=== PATIENT | male | born 1970 | race African-American/Black ===

== ENCOUNTER 2017-05-19 08:49 | Inpatient (IN) | payer SELFPAY ==
[~2017-05-19] VITALS: Ht 167.6 cm; Wt 68.5 kg
[~2017-05-19 08:49] MED LIST: UNKNOWN MEDICATION
[2017-05-19 09:53] LABS: BASOPHILS % 0.4 % (0.0-2.0); EOSINOPHILS % 0.6 % (0.0-5.0); HEMOGLOBIN. 15.2 g/dL (14.0-18.0); LYMPHOCYTES % 14.6 % (20.0-50.0); MEAN CORPUSCULAR HEMOGLOBIN 31.3 pg (28.0-32.0); MEAN CORPUSCULAR VOLUME 90.5 fL (80.0-94.0); MEAN PLATELET VOLUME 8.4 fl (7.4-10.4); MONOCYTES % 3.6 % (2.0-8.0); NEUTROPHILS % 80.8 % (40.0-76.0); PLATELET 181 x1000/uL (130-400); RED BLOOD CELL COUNT 4.86 mill/uL (4.7-6.1); RED CELL DISTRIBUTION WIDTH 13.6 % (11.6-14.6)
[2017-05-19 10:04] LABS: CHLORIDE 99 mEq/L (98-107); ETHANOL BLOOD < 10 mg/dL
[2017-05-19 10:16] LABS: CLARITY URINE CLEAR (CLEAR); COLOR URINE YELLOW (YELLOW); KETONES URINE NEGATIVE (NEGATIVE); LEUKOCYTE ESTERASE URINE NEGATIVE (NEGATIVE); NITRITE URINE NEGATIVE (NEGATIVE); OCCULT BLOOD URINE NEGATIVE (NEGATIVE); PROTEIN URINE NEGATIVE (NEGATIVE); SPECIFIC GRAVITY URINE 1.014 (1.005-1.030); UROBILINOGEN URINE 0.2 E.U./dL (0.2-1.0)
[2017-05-19] MEDS ORDERED: IOHEXOL-350 100 ML BOTTLE ONE ×2 (10:27→10:56)
[2017-05-19 10:37] LABS: *AMPHETAMINES SCREEN URINE NEGATIVE (NEGATIVE); *BARBITURATES SCREEN URINE NEGATIVE (NEGATIVE); *COCAINE SCREEN URINE NEGATIVE (NEGATIVE); CANNABINOID URINE SCREEN NEGATIVE (NEGATIVE); METHADONE URINE SCREEN NEGATIVE (NEGATIVE); OPIATES URINE SCREEN NEGATIVE (NEGATIVE); PHENCYCLIDINE URINE SCREEN NEGATIVE (NEGATIVE)
[2017-05-19 11:06] LABS: *BENZODIAZEPINES SCREEN URINE NEGATIVE (NEGATIVE)
[2017-05-19] MEDS ORDERED: CLONIDINE 0.1MG TABLET PO PRN (12:30)
[2017-05-19] MEDS ORDERED: DOCUSATE SODIUM 100MG CAPSULE PO PRN (12:30)
[2017-05-19] MEDS ORDERED: ONDANSETRON HCL 4MG/2ML VIAL IV PRN (12:30)
[2017-05-19] MEDS ORDERED: METOPROLOL TARTRATE 25MG TABLET PO SCH (12:30)
[2017-05-19 12:37] VITALS: BP 117/84
[2017-05-19] MEDS: ASPIRIN 81MG EC TABLET PO SCH (13:31)
[2017-05-19] MEDS: AMLODIPINE 10MG TABLET PO SCH (13:32)
[2017-05-19] MEDS: DEXT 5%/0.45% NACL 1000ML 1,000 ML IV SCH (13:33)
[2017-05-19 15:08] VITALS: BP 117/84
[2017-05-19] MEDS: HYDROCODONE/ACETAMINOPHEN 5/325MG TABLET PO PRN (15:27)
[2017-05-19 16:00] VITALS: BP 167/101
[2017-05-19] MEDS ORDERED: METF10002 PO (16:31)
[2017-05-19] MEDS ORDERED: ATOR10TA PO (16:32)
[2017-05-19 20:00] VITALS: BP 131/89
[2017-05-19] MEDS: ATORVASTATIN CALCIUM 20MG TABLET PO SCH (22:26)
[2017-05-19] MEDS: METOPROLOL TARTRATE 25MG TABLET PO SCH (22:31)
[2017-05-20] VITALS: BP 100/71
[2017-05-20 04:00] VITALS: BP 113/75
[2017-05-20 06:02] LABS: BASOPHILS % 0.4 % (0.0-2.0); EOSINOPHILS % 2.1 % (0.0-5.0); HEMATOCRIT. 43.2 % (42.0-52.0); HEMOGLOBIN. 14.9 g/dL (14.0-18.0); LYMPHOCYTES % 31.9 % (20.0-50.0); MEAN CORPUSCULAR HEMOGLOBIN 31.1 pg (28.0-32.0); MEAN CORPUSCULAR VOLUME 90.1 fL (80.0-94.0); MONOCYTES % 6.7 % (2.0-8.0); NEUTROPHILS % 58.9 % (40.0-76.0); PLATELET 188 x1000/uL (130-400); RED CELL DISTRIBUTION WIDTH 13.6 % (11.6-14.6)
[2017-05-20] MEDS: DEXT 5%/0.45% NACL 1000ML 1,000 ML IV SCH ×2 (07:58→21:07)
[2017-05-20 08:00] VITALS: BP 121/84
[2017-05-20 08:06] LABS: CHLORIDE 101 mEq/L (98-107)
[2017-05-20 08:20] LABS: HDL CHOLESTEROL 41 mg/dL (40-59); LDL CHOLESTEROL 133 mg/dL (5-100)
[2017-05-20] MEDS: AMLODIPINE 10MG TABLET PO SCH (09:26)
[2017-05-20] MEDS: METOPROLOL TARTRATE 25MG TABLET PO SCH ×2 (09:26→21:05)
[2017-05-20] MEDS: ASPIRIN 81MG EC TABLET PO SCH (09:27)
[2017-05-20 12:00] VITALS: BP 121/83
[2017-05-20 16:00] VITALS: BP 117/80
[2017-05-20 20:00] VITALS: BP 124/73
[2017-05-20] MEDS: ATORVASTATIN CALCIUM 20MG TABLET PO SCH (21:05)
[2017-05-21] VITALS: BP 117/70
[2017-05-21 04:00] VITALS: BP 107/73
[2017-05-21 08:00] VITALS: BP 118/84
[2017-05-21] MEDS: AMLODIPINE 10MG TABLET PO SCH (09:04)
[2017-05-21] MEDS: METOPROLOL TARTRATE 25MG TABLET PO SCH ×2 (09:05→21:03)
[2017-05-21] MEDS: ASPIRIN 81MG EC TABLET PO SCH (09:05)
[2017-05-21] MEDS: DEXT 5%/0.45% NACL 1000ML 1,000 ML IV SCH (14:56)
[2017-05-21 20:00] VITALS: BP 128/65
[2017-05-21] MEDS: ATORVASTATIN CALCIUM 20MG TABLET PO SCH (20:59)
[2017-05-22] VITALS: BP 120/78
[2017-05-22 04:00] VITALS: BP 118/88
[2017-05-22] MEDS: DEXT 5%/0.45% NACL 1000ML 1,000 ML IV SCH (06:56)
[2017-05-22 08:00] VITALS: BP 126/87
[2017-05-22] MEDS: ASPIRIN 81MG EC TABLET PO SCH (09:17)
[2017-05-22] MEDS: METOPROLOL TARTRATE 25MG TABLET PO SCH ×2 (09:18→21:01)
[2017-05-22] MEDS: AMLODIPINE 10MG TABLET PO SCH (09:19)
[2017-05-22 12:00] VITALS: BP 120/81
[2017-05-22 16:00] VITALS: BP 127/81
[2017-05-22 20:00] VITALS: BP 126/89
[2017-05-22] MEDS: ATORVASTATIN CALCIUM 20MG TABLET PO SCH (21:00)
[2017-05-23] VITALS: BP 102/68
[2017-05-23] MEDS: DEXT 5%/0.45% NACL 1000ML 1,000 ML IV SCH (00:27)
[2017-05-23 04:00] VITALS: BP 115/63
[2017-05-23 08:00] VITALS: BP 111/75
[2017-05-23] MEDS: ACETAMINOPHEN 650MG/20.3ML UDC PO PRN (08:08)
[2017-05-23] MEDS: ASPIRIN 81MG EC TABLET PO SCH (08:08)
[2017-05-23] MEDS: AMLODIPINE 10MG TABLET PO SCH (08:08)
[2017-05-23] MEDS: METOPROLOL TARTRATE 25MG TABLET PO SCH ×2 (08:10→21:29)
[2017-05-23 12:00] VITALS: BP 122/79
[2017-05-23] MEDS ORDERED: ZOLPIDEM TARTRATE 5MG TABLET PO PRN (13:15)
[2017-05-23] MEDS ORDERED: DEXTROSE 50% WATER 50ML SYRINGE IV PRN (13:15)
[2017-05-23] MEDS: BLOOD SUGAR DIAGNOSTIC STRIP TEST SCH ×3 (13:17→21:29)
[2017-05-23] MEDS: HYDROCODONE/ACETAMINOPHEN 5/325MG TABLET PO PRN ×2 (13:20→17:37)
[2017-05-23] MEDS: INSULIN LISPRO 100 UNITS/ML SUBCUT SCH ×3 (13:23→21:39)
[2017-05-23 16:00] VITALS: BP 126/83
[2017-05-23] MEDS: METFORMIN HCL 500MG TABLET PO SCH (17:36)
[2017-05-23 20:00] VITALS: BP 102/62
[2017-05-23] MEDS: ATORVASTATIN CALCIUM 20MG TABLET PO SCH (21:29)
[2017-05-24] VITALS: BP 115/79
[2017-05-24] MEDS: HYDROCODONE/ACETAMINOPHEN 5/325MG TABLET PO PRN (00:11)
[2017-05-24 04:00] VITALS: BP 105/74
[2017-05-24] MEDS: INSULIN LISPRO 100 UNITS/ML SUBCUT SCH ×4 (06:17→21:34)
[2017-05-24] MEDS: BLOOD SUGAR DIAGNOSTIC STRIP TEST SCH ×4 (06:18→21:29)
[2017-05-24] MEDS: METFORMIN HCL 500MG TABLET PO SCH ×2 (07:50→17:37)
[2017-05-24 08:00] VITALS: BP 125/82
[2017-05-24] MEDS: ASPIRIN 81MG EC TABLET PO SCH (08:49)
[2017-05-24] MEDS: AMLODIPINE 10MG TABLET PO SCH (08:49)
[2017-05-24] MEDS: METOPROLOL TARTRATE 25MG TABLET PO SCH ×2 (08:49→21:25)
[2017-05-24 12:00] VITALS: BP 108/70
[2017-05-24 16:00] VITALS: BP 109/66
[2017-05-24] MEDS: ACETAMINOPHEN 650MG/20.3ML UDC PO PRN (16:52)
[2017-05-24 20:00] VITALS: BP 105/41
[2017-05-24] MEDS: ATORVASTATIN CALCIUM 20MG TABLET PO SCH (21:25)
[2017-05-25] VITALS: BP 108/63
[2017-05-25 04:00] VITALS: BP 110/70
[2017-05-25] MEDS: BLOOD SUGAR DIAGNOSTIC STRIP TEST SCH ×4 (06:25→20:54)
[2017-05-25] MEDS: INSULIN LISPRO 100 UNITS/ML SUBCUT SCH ×4 (06:25→20:55)
[2017-05-25 08:00] VITALS: BP 122/77
[2017-05-25] MEDS: METFORMIN HCL 500MG TABLET PO SCH ×2 (08:45→17:26)
[2017-05-25] MEDS: METOPROLOL TARTRATE 25MG TABLET PO SCH ×2 (08:48→20:54)
[2017-05-25] MEDS: ASPIRIN 81MG EC TABLET PO SCH (08:49)
[2017-05-25] MEDS: AMLODIPINE 10MG TABLET PO SCH (08:49)
[2017-05-25 12:00] VITALS: BP 113/71
[2017-05-25 16:00] VITALS: BP 116/77
[2017-05-25 20:00] VITALS: BP 114/78
[2017-05-25] MEDS: ATORVASTATIN CALCIUM 20MG TABLET PO SCH (20:54)
[2017-05-25] MEDS: LOPERAMIDE HCL 2MG CAPSULE PO PRN (23:00)
[2017-05-26] VITALS: BP 105/67
[2017-05-26 04:00] VITALS: BP 109/69
[2017-05-26] MEDS: INSULIN LISPRO 100 UNITS/ML SUBCUT SCH ×4 (06:53→21:00)
[2017-05-26] MEDS: BLOOD SUGAR DIAGNOSTIC STRIP TEST SCH ×4 (06:54→21:00)
[2017-05-26 07:25] VITALS: BP 110/67
[2017-05-26] MEDS: METFORMIN HCL 500MG TABLET PO SCH ×2 (08:31→17:27)
[2017-05-26] MEDS: ASPIRIN 81MG EC TABLET PO SCH (08:31)
[2017-05-26] MEDS: AMLODIPINE 10MG TABLET PO SCH (08:31)
[2017-05-26] MEDS: METOPROLOL TARTRATE 25MG TABLET PO SCH ×2 (08:31→21:00)
[2017-05-26 12:22] VITALS: BP 108/78
[2017-05-26] MEDS: ACETAMINOPHEN 650MG/20.3ML UDC PO PRN (13:45)
[2017-05-26] MEDS ORDERED: NITROGLYCERIN 0.4MG TABLET SL SL PRN (14:15)
[2017-05-26] MEDS: HYDROCODONE/ACETAMINOPHEN 5/325MG TABLET PO PRN (15:01)
[2017-05-26 20:00] VITALS: BP 105/66
[2017-05-26] MEDS: ATORVASTATIN CALCIUM 20MG TABLET PO SCH (22:19)
[2017-05-27] VITALS: BP 111/76
[2017-05-27 04:00] VITALS: BP 106/72
[2017-05-27] MEDS: BLOOD SUGAR DIAGNOSTIC STRIP TEST SCH ×4 (05:55→21:10)
[2017-05-27] MEDS: INSULIN LISPRO 100 UNITS/ML SUBCUT SCH ×4 (07:15→22:06)
[2017-05-27 08:00] VITALS: BP 109/69
[2017-05-27] MEDS: AMLODIPINE 10MG TABLET PO SCH (09:00)
[2017-05-27] MEDS: METOPROLOL TARTRATE 25MG TABLET PO SCH ×2 (09:00→22:01)
[2017-05-27] MEDS: ASPIRIN 81MG EC TABLET PO SCH (09:21)
[2017-05-27] MEDS: METFORMIN HCL 500MG TABLET PO SCH ×2 (09:21→17:32)
[2017-05-27 12:00] VITALS: BP 121/80
[2017-05-27] MEDS: HYDROCODONE/ACETAMINOPHEN 5/325MG TABLET PO PRN (14:23)
[2017-05-27 16:00] VITALS: BP 121/89
[2017-05-27 20:00] VITALS: BP 120/80
[2017-05-27] MEDS: LOPERAMIDE HCL 2MG CAPSULE PO PRN (22:00)
[2017-05-27] MEDS: ATORVASTATIN CALCIUM 20MG TABLET PO SCH (22:00)
[2017-05-28] VITALS: BP 112/77
[2017-05-28 04:00] VITALS: BP 98/72
[2017-05-28] MEDS: BLOOD SUGAR DIAGNOSTIC STRIP TEST SCH ×4 (06:29→21:46)
[2017-05-28] MEDS: INSULIN LISPRO 100 UNITS/ML SUBCUT SCH ×4 (06:29→22:54)
[2017-05-28 08:00] VITALS: BP 105/61
[2017-05-28] MEDS: METFORMIN HCL 500MG TABLET PO SCH ×2 (08:30→18:06)
[2017-05-28] MEDS: ASPIRIN 81MG EC TABLET PO SCH (08:30)
[2017-05-28] MEDS: AMLODIPINE 10MG TABLET PO SCH (08:31)
[2017-05-28] MEDS: METOPROLOL TARTRATE 25MG TABLET PO SCH ×2 (08:31→20:52)
[2017-05-28 12:00] VITALS: BP 112/72
[2017-05-28 16:00] VITALS: BP 115/88
[2017-05-28] MEDS: LOPERAMIDE HCL 2MG CAPSULE PO PRN (18:06)
[2017-05-28 20:00] VITALS: BP 132/94
[2017-05-28] MEDS: ATORVASTATIN CALCIUM 20MG TABLET PO SCH (20:45)
[2017-05-29] VITALS: BP 109/72
[2017-05-29 04:00] VITALS: BP 118/77
[2017-05-29] MEDS: BLOOD SUGAR DIAGNOSTIC STRIP TEST SCH ×2 (06:27→12:33)
[2017-05-29] MEDS: INSULIN LISPRO 100 UNITS/ML SUBCUT SCH ×2 (06:27→12:37)
[2017-05-29] MEDS: METFORMIN HCL 500MG TABLET PO SCH (07:15)
[2017-05-29 08:00] VITALS: BP 117/72
[2017-05-29] MEDS: AMLODIPINE 10MG TABLET PO SCH (09:41)
[2017-05-29] MEDS: ASPIRIN 81MG EC TABLET PO SCH (09:42)
[2017-05-29] MEDS: METOPROLOL TARTRATE 25MG TABLET PO SCH (09:42)
[2017-05-29 12:00] VITALS: BP 126/86
[2017-05-29 13:15] VITALS: BP 126/86
== END 2017-05-29 15:00 | disposition home or self-care (01) | DRG 45 ==
LOC: ER 08:49 → EDBEDREQ 11:10 → ENRESERV 11:19 → 5WST 11:19 → SUPCPDRO 12:12
PROVIDERS: ADMIT Hospitalist; ATTEND Hospitalist
DX: I63.512 Cerebral infarction due to unspecified occlusion or stenosis of left middle cerebral artery (principal); G81.91 Hemiplegia, unspecified affecting right dominant side; I10 Essential (primary) hypertension; E11.9 Type 2 diabetes mellitus without complications; E78.5 Hyperlipidemia, unspecified; R29.810 Facial weakness; Z82.3 Family history of stroke; Z82.49 Family history of ischemic heart disease and other diseases of the circulatory system; Z91.14 Patient's other noncompliance with medication regimen
CPT/HCPCS: 36415; 70496; 70551; 71046; 80053; 80061; 80305; 81003; 82962; 83036; 85025; 92610; 93005; 93306; 93880; 93970; 97110; 97112; 97116; 97163; 97167; 97530; 97535; 99285; A4565; G0482; J1815; J2405; Q9967

== ENCOUNTER 2017-11-22 22:39 | Emergency (ER) | payer MEDICAID ==
[~2017-11-22] VITALS: Ht 167.6 cm; Wt 64.0 kg
[~2017-11-22 22:39] MED LIST changes: +ATOR10TA PO; +METF10004 PO; -UNKNOWN MEDICATION
[2017-11-23] MEDS ORDERED: KETOROLAC 30MG/ML VIAL IV ONE (00:15)
[2017-11-23] MEDS ORDERED: ASPIRIN 81MG TABLET PO ONE (00:15)
[2017-11-23 01:20] LABS: BASOPHILS % 0.3 % (0.0-2.0); EOSINOPHILS % 0.8 % (0.0-5.0); HEMATOCRIT. 41.6 % (42.0-52.0); HEMOGLOBIN. 14.2 g/dL (14.0-18.0); LYMPHOCYTES % 27.2 % (20.0-50.0); MEAN CORPUSCULAR HEMOGLOBIN 30.9 pg (28.0-32.0); MEAN CORPUSCULAR VOLUME 90.3 fL (80.0-94.0); MEAN PLATELET VOLUME 8.2 fl (7.4-10.4); MONOCYTES % 6.7 % (2.0-8.0); PLATELET 199 x1000/uL (130-400); RED CELL DISTRIBUTION WIDTH 13.2 % (11.6-14.6)
[2017-11-23 01:23] LABS: CHLORIDE 103 mEq/L (98-107)
[2017-11-23 01:33] LABS: INR 0.9; PARTIAL THROMBOPLASTIN TIME 23.4 sec (23.4-31.0); PROTHROMBIN TIME 9.5 sec (9.1-11.1)
[2017-11-23 04:57] LABS: CLARITY URINE CLEAR (CLEAR); COLOR URINE YELLOW (YELLOW); KETONES URINE NEGATIVE (NEGATIVE); LEUKOCYTE ESTERASE URINE NEGATIVE (NEGATIVE); NITRITE URINE NEGATIVE (NEGATIVE); OCCULT BLOOD URINE NEGATIVE (NEGATIVE); PROTEIN URINE TRACE (NEGATIVE); SPECIFIC GRAVITY URINE 1.018 (1.005-1.030)
[2017-11-23 06:53] VITALS: BP 153/106
== END 2017-11-23 07:04 | disposition home or self-care (01) ==
LOC: ER 22:39 → CANBEDREQ 11-23 08:40
DX: R07.89 Other chest pain (principal); R06.02 Shortness of breath; M79.89 Other specified soft tissue disorders; M79.601 Pain in right arm; E11.9 Type 2 diabetes mellitus without complications; I10 Essential (primary) hypertension; Z86.73 Personal history of transient ischemic attack (TIA), and cerebral infarction without residual deficits; Z79.84 Long term (current) use of oral hypoglycemic drugs; Z87.891 Personal history of nicotine dependence
CPT/HCPCS: 36415; 71045; 80053; 81003; 82962; 83880; 84484; 85025; 85610; 85730; 93005; 96374; 99285; J1885

== ENCOUNTER 2019-10-22 10:44 | Inpatient (IN) | payer MEDICAID ==
[~2019-10-22] VITALS: Ht 167.6 cm; Wt 69.0 kg
[~2019-10-22 10:44] MED LIST changes: +METF-416 PO; -METF10004 PO
[2019-10-22] MEDS ORDERED: SODIUM CHLORIDE 0.9% 500 ML IV ONE (11:22)
[2019-10-22 12:00] LABS: CHLORIDE 108 mEq/L (98-107); HEMOGLOBIN. 12.9 g/dL (14.0-18.0); MEAN CORPUSCULAR HEMOGLOBIN 30.4 pg (28.0-32.0); MEAN CORPUSCULAR VOLUME 89.6 fL (80.0-94.0); RED BLOOD CELL COUNT 4.25 mill/uL (4.7-6.1); RED CELL DISTRIBUTION WIDTH 13.3 % (11.6-14.6)
[2019-10-22 12:04] LABS: PROTHROMBIN TIME 10.5 sec (9.6-11.0)
[2019-10-22 12:06] LABS: ETHANOL BLOOD < 10 mg/dL
[2019-10-22 12:08] LABS: LDL CHOLESTEROL 51 mg/dL (5-100)
[2019-10-22 12:10] LABS: CREATINE KINASE 108 IU/L (39-308)
[2019-10-22 12:34] LABS: PLATELET 177 x1000/uL (130-400)
[2019-10-22 12:37] LABS: PLATELET ESTIMATE NORMAL
[2019-10-22 15:43] LABS: CLARITY URINE CLEAR (CLEAR); COLOR URINE YELLOW (YELLOW); KETONES URINE NEGATIVE (NEGATIVE); LEUKOCYTE ESTERASE URINE NEGATIVE (NEGATIVE); NITRITE URINE NEGATIVE (NEGATIVE); OCCULT BLOOD URINE NEGATIVE (NEGATIVE); PH URINE 5.5 (4.5-8.0); PROTEIN URINE TRACE (NEGATIVE); SPECIFIC GRAVITY URINE 1.022 (1.005-1.030)
[2019-10-22 16:01] LABS: *AMPHETAMINES SCREEN URINE NEGATIVE (NEGATIVE); *BARBITURATES SCREEN URINE NEGATIVE (NEGATIVE); CANNABINOID URINE SCREEN NEGATIVE (NEGATIVE)
[2019-10-22 16:03] LABS: *BENZODIAZEPINES SCREEN URINE NEGATIVE (NEGATIVE); *COCAINE SCREEN URINE NEGATIVE (NEGATIVE); METHADONE URINE SCREEN NEGATIVE (NEGATIVE); OPIATES URINE SCREEN NEGATIVE (NEGATIVE); PHENCYCLIDINE URINE SCREEN NEGATIVE (NEGATIVE)
[2019-10-22] MEDS ORDERED: CLONIDINE 0.1MG TABLET PO PRN (18:15)
[2019-10-22] MEDS ORDERED: DIPHENHYDRAMINE 50MG/ML VIAL IV PRN (18:15)
[2019-10-22] MEDS ORDERED: ACETAMINOPHEN 325MG TABLET PO PRN (18:15)
[2019-10-22] MEDS ORDERED: ONDANSETRON HCL 4MG/2ML INJ IV PRN (18:15)
[2019-10-22] MEDS ORDERED: DEXTROSE 50% WATER 50ML SYRINGE IV PRN (18:15)
[2019-10-22] MEDS: ENOXAPARIN 40MG/0.4ML SYR SUBCUT SCH (20:00)
[2019-10-22] MEDS: INSULIN LISPRO 100 UNITS/ML SUBCUT SCH (21:00)
[2019-10-22] MEDS: BLOOD SUGAR DIAGNOSTIC STRIP TEST SCH (21:08)
[2019-10-22] MEDS: ATORVASTATIN CALCIUM 20MG TABLET PO SCH (21:11)
[2019-10-22] MEDS: SODIUM CHLORIDE 0.9% INJ 3ML FLUSH IVF SCH (22:00)
[2019-10-23] VITALS (12 sets, daily range): BP systolic 120–145; BP diastolic 55–102
[2019-10-23] MEDS: TRAMADOL 50MG TABLET PO PRN ×2 (00:31→06:57)
[2019-10-23] MEDS: SODIUM CHLORIDE 0.9% INJ 3ML FLUSH IVF SCH ×3 (06:16→21:18)
[2019-10-23] MEDS: BLOOD SUGAR DIAGNOSTIC STRIP TEST SCH ×4 (06:16→21:17)
[2019-10-23] MEDS: METFORMIN HCL 500MG TABLET PO SCH ×2 (10:02→17:20)
[2019-10-23] MEDS: LEVETIRACETAM 500MG TABLET PO SCH ×2 (10:02→21:16)
[2019-10-23] MEDS: ASPIRIN 81MG EC TABLET PO SCH (10:03)
[2019-10-23] MEDS: INSULIN LISPRO 100 UNITS/ML SUBCUT SCH ×4 (10:04→21:17)
[2019-10-23] MEDS: ENOXAPARIN 40MG/0.4ML SYR SUBCUT SCH (21:16)
[2019-10-23] MEDS: ATORVASTATIN CALCIUM 20MG TABLET PO SCH (21:16)
[2019-10-24] VITALS (13 sets, daily range): BP systolic 116–135; BP diastolic 74–93
[2019-10-24] MEDS: BLOOD SUGAR DIAGNOSTIC STRIP TEST SCH ×4 (06:17→20:12)
[2019-10-24] MEDS: SODIUM CHLORIDE 0.9% INJ 3ML FLUSH IVF SCH ×3 (06:19→23:45)
[2019-10-24] MEDS: METFORMIN HCL 500MG TABLET PO SCH ×2 (07:20→17:20)
[2019-10-24] MEDS ORDERED: AMLO-375 MT (07:32)
[2019-10-24] MEDS ORDERED: DOCU250C14 MT (07:32)
[2019-10-24] MEDS ORDERED: CLOP75TA4 MT (07:32)
[2019-10-24] MEDS ORDERED: ATEN-42 MT (07:32)
[2019-10-24] MEDS ORDERED: ATOR80TA MT (07:32)
[2019-10-24] MEDS ORDERED: [UNRECOGNIZED DRUG - CODE] PO (07:32)
[2019-10-24] MEDS ORDERED: PANT20TA3 MT (07:32)
[2019-10-24] MEDS ORDERED: ASPI-1079 PO (07:32)
[2019-10-24] MEDS ORDERED: ACET650T37 PO (07:32)
[2019-10-24] MEDS ORDERED: LEVE500T98 MT (07:32)
[2019-10-24] MEDS ORDERED: CLON0.2T MT (07:32)
[2019-10-24] MEDS: ASPIRIN 81MG EC TABLET PO SCH (09:09)
[2019-10-24] MEDS: CLOPIDOGREL 75MG TABLET PO SCH (09:09)
[2019-10-24] MEDS: LEVETIRACETAM 500MG TABLET PO SCH ×2 (09:09→20:11)
[2019-10-24] MEDS: INSULIN LISPRO 100 UNITS/ML SUBCUT SCH ×4 (09:11→20:12)
[2019-10-24] MEDS: ATORVASTATIN CALCIUM 20MG TABLET PO SCH (20:11)
[2019-10-24] MEDS: ENOXAPARIN 40MG/0.4ML SYR SUBCUT SCH (20:12)
[2019-10-24] MEDS: TRAMADOL 50MG TABLET PO PRN (20:20)
[2019-10-25] VITALS (12 sets, daily range): BP systolic 115–144; BP diastolic 59–91
[2019-10-25] MEDS: SODIUM CHLORIDE 0.9% INJ 3ML FLUSH IVF SCH ×3 (06:01→22:00)
[2019-10-25] MEDS: BLOOD SUGAR DIAGNOSTIC STRIP TEST SCH ×4 (06:20→20:17)
[2019-10-25] MEDS: METFORMIN HCL 500MG TABLET PO SCH ×3 (07:20→16:54)
[2019-10-25] MEDS: LEVETIRACETAM 500MG TABLET PO SCH ×2 (08:26→20:16)
[2019-10-25] MEDS: ASPIRIN 81MG EC TABLET PO SCH (08:26)
[2019-10-25] MEDS: CLOPIDOGREL 75MG TABLET PO SCH (08:27)
[2019-10-25] MEDS: INSULIN LISPRO 100 UNITS/ML SUBCUT SCH ×4 (08:28→20:41)
[2019-10-25] MEDS: TRAMADOL 50MG TABLET PO PRN (08:49)
[2019-10-25] MEDS: GABAPENTIN 100MG CAPSULE PO SCH ×2 (14:42→23:16)
[2019-10-25] MEDS: ENOXAPARIN 40MG/0.4ML SYR SUBCUT SCH (20:16)
[2019-10-25] MEDS: ATORVASTATIN CALCIUM 20MG TABLET PO SCH (20:16)
[2019-10-25] MEDS: ZOLPIDEM TARTRATE 5MG TABLET PO PRN (23:16)
[2019-10-26] VITALS (12 sets, daily range): BP systolic 108–154; BP diastolic 62–90
[2019-10-26] MEDS: SODIUM CHLORIDE 0.9% INJ 3ML FLUSH IVF SCH ×3 (06:17→21:38)
[2019-10-26] MEDS: GABAPENTIN 100MG CAPSULE PO SCH ×3 (06:17→21:38)
[2019-10-26] MEDS: BLOOD SUGAR DIAGNOSTIC STRIP TEST SCH ×4 (06:17→20:07)
[2019-10-26] MEDS: METFORMIN HCL 500MG TABLET PO SCH ×2 (07:20→17:20)
[2019-10-26] MEDS: INSULIN LISPRO 100 UNITS/ML SUBCUT SCH ×4 (07:20→20:53)
[2019-10-26] MEDS: ASPIRIN 81MG EC TABLET PO SCH (09:21)
[2019-10-26] MEDS: CLOPIDOGREL 75MG TABLET PO SCH (09:21)
[2019-10-26] MEDS: LEVETIRACETAM 500MG TABLET PO SCH ×2 (09:21→20:06)
[2019-10-26] MEDS: ATORVASTATIN CALCIUM 20MG TABLET PO SCH (20:06)
[2019-10-26] MEDS: ENOXAPARIN 40MG/0.4ML SYR SUBCUT SCH (20:07)
[2019-10-26] MEDS: ZOLPIDEM TARTRATE 5MG TABLET PO PRN (21:38)
[2019-10-27] VITALS (12 sets, daily range): BP systolic 118–152; BP diastolic 72–99
[2019-10-27] MEDS: GABAPENTIN 100MG CAPSULE PO SCH ×3 (05:28→21:06)
[2019-10-27] MEDS: SODIUM CHLORIDE 0.9% INJ 3ML FLUSH IVF SCH ×3 (05:28→21:06)
[2019-10-27] MEDS: BLOOD SUGAR DIAGNOSTIC STRIP TEST SCH ×4 (05:55→20:25)
[2019-10-27 07:04] LABS: CHLORIDE 103 mEq/L (98-107)
[2019-10-27 07:10] LABS: BASOPHILS % 0.7 % (0.0-2.0); EOSINOPHILS % 2.7 % (0.0-5.0); HEMATOCRIT. 38.8 % (42.0-52.0); HEMOGLOBIN. 13.2 g/dL (14.0-18.0); LYMPHOCYTES % 35.6 % (20.0-50.0); MEAN CORPUSCULAR HEMOGLOBIN 30.6 pg (28.0-32.0); MEAN CORPUSCULAR VOLUME 89.9 fL (80.0-94.0); MONOCYTES % 9.8 % (2.0-8.0); NEUTROPHILS % 51.2 % (40.0-76.0); PLATELET 175 x1000/uL (130-400); RED BLOOD CELL COUNT 4.32 mill/uL (4.7-6.1); RED CELL DISTRIBUTION WIDTH 13.2 % (11.6-14.6)
[2019-10-27] MEDS: METFORMIN HCL 500MG TABLET PO SCH ×2 (07:20→16:53)
[2019-10-27] MEDS: INSULIN LISPRO 100 UNITS/ML SUBCUT SCH ×4 (07:20→21:16)
[2019-10-27] MEDS: ASPIRIN 81MG EC TABLET PO SCH (08:27)
[2019-10-27] MEDS: LEVETIRACETAM 500MG TABLET PO SCH ×2 (08:27→20:24)
[2019-10-27] MEDS: CLOPIDOGREL 75MG TABLET PO SCH (08:27)
[2019-10-27] MEDS: TRAMADOL 50MG TABLET PO PRN (10:01)
[2019-10-27] MEDS: FOLIC ACID 1MG TABLET PO SCH (14:59)
[2019-10-27] MEDS: ACETAMINOPHEN 325MG TABLET PO PRN (20:20)
[2019-10-27] MEDS: ENOXAPARIN 40MG/0.4ML SYR SUBCUT SCH (20:24)
[2019-10-27] MEDS: ATORVASTATIN CALCIUM 20MG TABLET PO SCH (20:24)
[2019-10-28] VITALS (10 sets, daily range): BP systolic 110–158; BP diastolic 49–93
[2019-10-28] MEDS: SODIUM CHLORIDE 0.9% INJ 3ML FLUSH IVF SCH ×2 (05:10→14:00)
[2019-10-28] MEDS: GABAPENTIN 100MG CAPSULE PO SCH ×2 (06:10→14:00)
[2019-10-28] MEDS: BLOOD SUGAR DIAGNOSTIC STRIP TEST SCH ×2 (06:10→12:23)
[2019-10-28] MEDS: ACETAMINOPHEN 325MG TABLET PO PRN (06:46)
[2019-10-28] MEDS: INSULIN LISPRO 100 UNITS/ML SUBCUT SCH ×2 (07:20→12:23)
[2019-10-28] MEDS: METFORMIN HCL 500MG TABLET PO SCH (07:20)
[2019-10-28] MEDS: FOLIC ACID 1MG TABLET PO SCH (08:32)
[2019-10-28] MEDS: ASPIRIN 81MG EC TABLET PO SCH (08:32)
[2019-10-28] MEDS: CLOPIDOGREL 75MG TABLET PO SCH (08:32)
[2019-10-28] MEDS: LEVETIRACETAM 500MG TABLET PO SCH (08:32)
== END 2019-10-28 17:43 | disposition short-term general hospital (02) | DRG 45 ==
LOC: ER 10:53 → EDBEDREQTM 12:58 → EDBEDREQ 12:58 → ENRESERV 15:05 → 3WST 21:43 → ENRESERV 22:17
PROVIDERS: ADMIT Internal Medicine; ATTEND Internal Medicine
DX: I63.89 Other cerebral infarction (principal); I10 Essential (primary) hypertension; E78.5 Hyperlipidemia, unspecified; G40.909 Epilepsy, unspecified, not intractable, without status epilepticus; R47.1 Dysarthria and anarthria; Z20.828 Contact with and (suspected) exposure to other viral communicable diseases; I42.9 Cardiomyopathy, unspecified; E11.42 Type 2 diabetes mellitus with diabetic polyneuropathy; Z79.1 Long term (current) use of non-steroidal anti-inflammatories (NSAID); I69.30 Unspecified sequelae of cerebral infarction; Z79.899 Other long term (current) drug therapy; Z79.84 Long term (current) use of oral hypoglycemic drugs
CPT/HCPCS: 36415; 70551; 71045; 80048; 80053; 80061; 80305; 80320; 81003; 82550; 82962; 83036; 83721; 83880; 84484; 85025; 93005; 93880; 97110; 97112; 97162; 97166; 97530; 99285; J1650; J1815; J7040; G0480; U0003-CS

== ENCOUNTER 2019-12-24 07:03 | Inpatient (IN) | payer MEDICARE, MEDICAID ==
[~2019-12-24] VITALS: Ht 177.8 cm; Wt 64.9 kg
[2019-12-24] VITALS (53 sets, daily range): BP systolic 83–145; BP diastolic 47–97
[~2019-12-24 07:03] MED LIST changes: +ACET650T37 PO; +AMLO-375 MT; +ASPI-1079 PO; +ATEN-42 PO; +CLON0.2T PO; +CLOP75TA4 PO; +DOCU250C14 MT; +LEVE500T98 PO; +PANT20TA3 PO; +[UNRECOGNIZED DRUG - CODE] PO
[2019-12-24] MEDS ORDERED: SODIUM CHLORIDE 0.9% 1,000 ML IV ONE (07:15)
[2019-12-24] MEDS ORDERED: ONDANSETRON HCL 4MG/2ML INJ IV ONE (07:15)
[2019-12-24] MEDS ORDERED: PIPERACILLIN/TAZ 3.375G PREMIX 50 ML IV ONE (07:15)
[2019-12-24 07:23] LABS: BG BASE EXCESS 2.5 mmol/L (-2.0-2.0); BG CARBOXYHEMOGLOBIN 0.3 % (0.5-1.5); BG FRACTION INSPIRED OXYGEN 100; BG HCO3 ACT 24.7 mmol/L (22.0-26.0); BG METHEMOGLOBIN 0.2 % (0.0-1.5); BG OXYHEMOGLOBIN 97.5 % (94.0-97.0); BG PCO2 31.2 mmHg (35.0-45.0); BG PH 7.516 (7.350-7.450); BG PO2 119.2 mmHg (75.0-100.0); BG SAMPLE SITE RIGHT RADIAL; BG VENT MODE MASK - NRB
[2019-12-24] MEDS ORDERED: SODIUM CHLORIDE 0.9% 1000ML BAG (SEPSIS BOLUS) IV ONE (07:30)
[2019-12-24] MEDS ORDERED: LEVETIRACETAM 1000MG PREMIX 100 ML IV ONE (07:30)
[2019-12-24] MEDS ORDERED: SODIUM CHLORIDE 0.9% 10ML VIAL ONE (08:00)
[2019-12-24 08:17] LABS: BASOPHILS % 0.4 % (0.0-2.0); EOSINOPHILS % 0.1 % (0.0-5.0); HEMATOCRIT. 39.6 % (42.0-52.0); HEMOGLOBIN. 13.4 g/dL (14.0-18.0); LYMPHOCYTES % 15.2 % (20.0-50.0); MEAN CORPUSCULAR HEMOGLOBIN 30.4 pg (28.0-32.0); MEAN CORPUSCULAR VOLUME 90.1 fL (80.0-94.0); MEAN PLATELET VOLUME 9.3 fl (7.4-10.4); MONOCYTES % 6.8 % (2.0-8.0); NEUTROPHILS % 77.5 % (40.0-76.0); PLATELET 223 x1000/uL (130-400); RED BLOOD CELL COUNT 4.39 mill/uL (4.7-6.1); RED CELL DISTRIBUTION WIDTH 13.1 % (11.6-14.6)
[2019-12-24 08:22] LABS: CHLORIDE 98 mEq/L (98-107)
[2019-12-24 08:26] LABS: ETHANOL BLOOD < 10 mg/dL
[2019-12-24 08:30] LABS: CREATINE KINASE 445 IU/L (39-308)
[2019-12-24 08:31] LABS: BETA HYDROXYBUTYRATE 0.4 mMol/L (0.0-0.3)
[2019-12-24 08:32] LABS: INR 1.1; PROTHROMBIN TIME 11.2 sec (9.6-11.0)
[2019-12-24] MEDS ORDERED: PROPOFOL 10MG/ML 100ML 100 ML IV ONE (08:45)
[2019-12-24] MEDS ORDERED: SUCCINYLCHOLINE CHLORIDE 200MG/10ML IV ONE ×2 (08:45)
[2019-12-24] MEDS ORDERED: VECURONIUM BROMIDE 10 MG/VIAL IV ONE ×2 (08:45→09:30)
[2019-12-24] MEDS ORDERED: ETOMIDATE 2MG/ML 10ML VIAL IV ONE (08:45)
[2019-12-24 08:46] LABS: CLARITY URINE CLEAR (CLEAR); COLOR URINE YELLOW (YELLOW); KETONES URINE 1+ (NEGATIVE); LEUKOCYTE ESTERASE URINE NEGATIVE (NEGATIVE); NITRITE URINE NEGATIVE (NEGATIVE); OCCULT BLOOD URINE 1+ (NEGATIVE); PH URINE 6.5 (4.5-8.0); PROTEIN URINE 3+ (NEGATIVE); SPECIFIC GRAVITY URINE 1.033 (1.005-1.030)
[2019-12-24 09:10] LABS: *AMPHETAMINES SCREEN URINE NEGATIVE (NEGATIVE); *BARBITURATES SCREEN URINE NEGATIVE (NEGATIVE)
[2019-12-24 09:11] LABS: *BENZODIAZEPINES SCREEN URINE NEGATIVE (NEGATIVE); *COCAINE SCREEN URINE NEGATIVE (NEGATIVE); METHADONE URINE SCREEN NEGATIVE (NEGATIVE); OPIATES URINE SCREEN NEGATIVE (NEGATIVE)
[2019-12-24 09:12] LABS: CANNABINOID URINE SCREEN NEGATIVE (NEGATIVE); PHENCYCLIDINE URINE SCREEN NEGATIVE (NEGATIVE)
[2019-12-24] MEDS ORDERED: VANCOMYCIN 1 G PREMIX 200 ML IV SCH (09:15)
[2019-12-24] MEDS ORDERED: ACETAMINOPHEN 650MG SUPP PR ONE (09:30)
[2019-12-24 09:47] LABS: BG BASE EXCESS -2.3 mmol/L (-2.0-2.0); BG CARBOXYHEMOGLOBIN 0.3 % (0.5-1.5); BG DEOXYHEMOGLOBIN 0.5 % (0.0-5.0); BG FRACTION INSPIRED OXYGEN 100; BG HCO3 ACT 22.4 mmol/L (22.0-26.0); BG METHEMOGLOBIN 0.3 % (0.0-1.5); BG OXYGEN SATURATION 99.5 % (92.0-98.5); BG OXYHEMOGLOBIN 98.9 % (94.0-97.0); BG PCO2 38.3 mmHg (35.0-45.0); BG PH 7.385 (7.350-7.450); BG PO2 384.3 mmHg (75.0-100.0); BG SAMPLE SITE RIGHT RADIAL; BG TOTAL HEMOGLOBIN 12.9 g/dL (12.0-18.0); BG VENT MODE VENT - AC
[2019-12-24] MEDS ORDERED: NOREPINEPHRINE 32 MG in DEXT 5% WATER 218 ML IV PRN (10:30)
[2019-12-24] MEDS ORDERED: MIDAZOLAM HCL 100 MG in DEXT 5% WATER 80 ML IV PRN (10:30)
[2019-12-24] MEDS ORDERED: LEVETIRACETAM 500 MG in SODIUM CHLORIDE 0.9% 100 ML IV SCH (10:30)
[2019-12-24] MEDS ORDERED: DEXTROSE 50% WATER 50ML SYRINGE IV PRN (10:45)
[2019-12-24] MEDS: INSULIN LISPRO 100 UNITS/ML SUBCUT SCH ×3 (11:21→21:37)
[2019-12-24] MEDS: SODIUM CHLORIDE 0.9% 1,000 ML IV SCH ×2 (11:22→21:37)
[2019-12-24] MEDS: BLOOD SUGAR DIAGNOSTIC STRIP TEST SCH ×3 (11:22→21:38)
[2019-12-24] MEDS: PANTOPRAZOLE SODIUM 40 MG/VIAL IV SCH ×2 (11:54→18:20)
[2019-12-24] MEDS: PROPOFOL 10MG/ML 100ML 100 ML IV PRN ×2 (11:56→18:22)
[2019-12-24] MEDS: AZITHROMYCIN 500 MG in DEXT 5% WATER 250 ML IV SCH (14:06)
[2019-12-24] MEDS: PIPERACILLIN/TAZOBACTAM 3.375 G in DEXT 5% WATER 100 ML IV SCH ×2 (14:06→21:36)
[2019-12-24] MEDS: LACTULOSE 20G/30ML UDC PO SCH ×2 (14:53→23:19)
[2019-12-24] MEDS: VANCOMYCIN 1 G PREMIX 200 ML IV SCH (21:36)
[2019-12-24] MEDS: LEVETIRACETAM 500MG PREMIX 100 ML IV SCH (21:39)
[2019-12-24] MEDS: INSULIN GLARGINE UD 100 UNITS/ML SYR SUBCUT SCH (23:24)
[2019-12-25] VITALS (59 sets, daily range): BP systolic 98–149; BP diastolic 62–94
[2019-12-25] MEDS: PIPERACILLIN/TAZOBACTAM 3.375 G in DEXT 5% WATER 100 ML IV SCH ×4 (02:34→21:13)
[2019-12-25] MEDS: PROPOFOL 10MG/ML 100ML 100 ML IV PRN (03:07)
[2019-12-25 05:16] LABS: BASOPHILS % 0.6 % (0.0-2.0); EOSINOPHILS % 0.6 % (0.0-5.0); HEMATOCRIT. 31.1 % (42.0-52.0); HEMOGLOBIN. 10.5 g/dL (14.0-18.0); LYMPHOCYTES % 8.9 % (20.0-50.0); MEAN CORPUSCULAR HEMOGLOBIN 30.3 pg (28.0-32.0); MEAN PLATELET VOLUME 8.4 fl (7.4-10.4); MONOCYTES % 3.5 % (2.0-8.0); NEUTROPHILS % 86.4 % (40.0-76.0); PLATELET 155 x1000/uL (130-400); RED BLOOD CELL COUNT 3.45 mill/uL (4.7-6.1); RED CELL DISTRIBUTION WIDTH 13.6 % (11.6-14.6)
[2019-12-25 05:22] LABS: CHLORIDE 106 mEq/L (98-107)
[2019-12-25 05:27] LABS: PHOSPHORUS 3.1 mg/dL (2.5-4.9)
[2019-12-25] MEDS: BLOOD SUGAR DIAGNOSTIC STRIP TEST SCH ×4 (06:44→21:25)
[2019-12-25] MEDS: LACTULOSE 20G/30ML UDC PO SCH ×3 (06:47→22:22)
[2019-12-25] MEDS: INSULIN LISPRO 100 UNITS/ML SUBCUT SCH ×4 (07:00→21:00)
[2019-12-25] MEDS: LEVETIRACETAM 500MG PREMIX 100 ML IV SCH ×2 (08:27→21:13)
[2019-12-25] MEDS: PANTOPRAZOLE SODIUM 40 MG/VIAL IV SCH ×2 (08:39→16:50)
[2019-12-25] MEDS: VANCOMYCIN 1 G PREMIX 200 ML IV SCH ×2 (08:39→21:14)
[2019-12-25] MEDS: INSULIN GLARGINE UD 100 UNITS/ML SYR SUBCUT SCH ×2 (09:51→22:23)
[2019-12-25] MEDS ORDERED: PROPOFOL 10MG/ML 100ML 100 ML IV PRN (10:00)
[2019-12-25] MEDS: SODIUM CHLORIDE 0.9% 1,000 ML IV SCH (11:45)
[2019-12-25] MEDS: AZITHROMYCIN 500 MG in DEXT 5% WATER 250 ML IV SCH (13:11)
[2019-12-25 21:24] LABS: FOLIC ACID (FOLATE) SERUM 16.3 ng/mL (>5.38)
[2019-12-26] VITALS (62 sets, daily range): BP systolic 100–180; BP diastolic 63–110
[2019-12-26] MEDS: SODIUM CHLORIDE 0.9% 1,000 ML IV SCH ×2 (01:46→16:23)
[2019-12-26] MEDS: PIPERACILLIN/TAZOBACTAM 3.375 G in DEXT 5% WATER 100 ML IV SCH ×4 (02:31→21:41)
[2019-12-26 05:34] LABS: BASOPHILS % 0.2 % (0.0-2.0); EOSINOPHILS % 1.2 % (0.0-5.0); HEMATOCRIT. 27.8 % (42.0-52.0); HEMOGLOBIN. 9.5 g/dL (14.0-18.0); LYMPHOCYTES % 10.5 % (20.0-50.0); MEAN CORPUSCULAR HEMOGLOBIN 30.9 pg (28.0-32.0); MEAN CORPUSCULAR VOLUME 90.3 fL (80.0-94.0); MEAN PLATELET VOLUME 8.8 fl (7.4-10.4); MONOCYTES % 4.9 % (2.0-8.0); NEUTROPHILS % 83.2 % (40.0-76.0); PLATELET 138 x1000/uL (130-400); RED BLOOD CELL COUNT 3.08 mill/uL (4.7-6.1); RED CELL DISTRIBUTION WIDTH 13.2 % (11.6-14.6)
[2019-12-26 05:47] LABS: CHLORIDE 109 mEq/L (98-107)
[2019-12-26] MEDS: BLOOD SUGAR DIAGNOSTIC STRIP TEST SCH ×4 (06:37→21:34)
[2019-12-26] MEDS: LACTULOSE 20G/30ML UDC PO SCH ×3 (06:55→21:41)
[2019-12-26] MEDS: INSULIN LISPRO 100 UNITS/ML SUBCUT SCH ×4 (07:00→21:00)
[2019-12-26 07:53] LABS: BG BASE EXCESS 0.5 mmol/L (-2.0-2.0); BG DEOXYHEMOGLOBIN 1.4 % (0.0-5.0); BG FRACTION INSPIRED OXYGEN 25; BG METHEMOGLOBIN 0.2 % (0.0-1.5); BG OXYGEN SATURATION 98.6 % (92.0-98.5); BG OXYHEMOGLOBIN 98.4 % (94.0-97.0); BG PCO2 35.2 mmHg (35.0-45.0); BG PH 7.452 (7.350-7.450); BG PO2 146.3 mmHg (75.0-100.0); BG SAMPLE SITE RIGHT RADIAL; BG TOTAL HEMOGLOBIN 12.4 g/dL (12.0-18.0); BG VENT MODE VENT - AC
[2019-12-26] MEDS: PANTOPRAZOLE SODIUM 40 MG/VIAL IV SCH ×2 (08:57→16:23)
[2019-12-26] MEDS: LEVETIRACETAM 500MG PREMIX 100 ML IV SCH ×3 (09:00→21:41)
[2019-12-26] MEDS: VANCOMYCIN 1 G PREMIX 200 ML IV SCH (09:00)
[2019-12-26] MEDS: INSULIN GLARGINE UD 100 UNITS/ML SYR SUBCUT SCH ×2 (10:00→21:34)
[2019-12-26] MEDS: AZITHROMYCIN 500 MG in DEXT 5% WATER 250 ML IV SCH (11:17)
[2019-12-26] MEDS: VANCOMYCIN 1250MG in DEXTROSE 5% WATER 250ML IV SCH ×2 (13:10→21:41)
[2019-12-26] MEDS ORDERED: PROPOFOL 10MG/ML 100ML 100 ML IV PRN (13:45)
[2019-12-26] MEDS: MIDAZOLAM HCL 100 MG in DEXT 5% WATER 80 ML IV PRN (16:20)
[2019-12-26] MEDS: FENTANYL CITRATE/PF 1,000 MCG in SODIUM CHLORIDE 0.9% 80 ML IV PRN (16:21)
[2019-12-27] VITALS (49 sets, daily range): BP systolic 114–169; BP diastolic 77–112
[2019-12-27] MEDS: PIPERACILLIN/TAZOBACTAM 3.375 G in DEXT 5% WATER 100 ML IV SCH ×4 (01:52→20:07)
[2019-12-27] MEDS: SODIUM CHLORIDE 0.9% 1,000 ML IV SCH ×2 (04:02→13:03)
[2019-12-27] MEDS: FENTANYL CITRATE/PF 1,000 MCG in SODIUM CHLORIDE 0.9% 80 ML IV PRN (04:03)
[2019-12-27 06:03] LABS: CHLORIDE 108 mEq/L (98-107)
[2019-12-27] MEDS: LACTULOSE 20G/30ML UDC PO SCH ×3 (06:08→21:56)
[2019-12-27] MEDS: VANCOMYCIN 1250MG in DEXTROSE 5% WATER 250ML IV SCH (06:08)
[2019-12-27 06:12] LABS: VANCOMYCIN TROUGH 21.3 ug/mL (5.0-10.0)
[2019-12-27] MEDS: BLOOD SUGAR DIAGNOSTIC STRIP TEST SCH ×3 (06:32→17:48)
[2019-12-27] MEDS: PANTOPRAZOLE SODIUM 40 MG/VIAL IV SCH ×2 (08:56→18:04)
[2019-12-27] MEDS: MIDAZOLAM HCL 100 MG in DEXT 5% WATER 80 ML IV PRN (08:56)
[2019-12-27] MEDS: LEVETIRACETAM 500MG PREMIX 100 ML IV SCH ×2 (08:56→20:07)
[2019-12-27] MEDS ORDERED: POTASSIUM CHLORIDE INJ 40 MEQ in DEXT 5% WATER 250 ML IV NR ×2 (09:00→14:00)
[2019-12-27 09:21] LABS: EOSINOPHILS % 2.1 % (0.0-5.0); HEMATOCRIT. 29.4 % (42.0-52.0); HEMOGLOBIN. 10.1 g/dL (14.0-18.0); LYMPHOCYTES % 13.4 % (20.0-50.0); MEAN CORPUSCULAR HEMOGLOBIN 30.9 pg (28.0-32.0); MEAN CORPUSCULAR VOLUME 90.2 fL (80.0-94.0); MEAN PLATELET VOLUME 9.9 fl (7.4-10.4); NEUTROPHILS % 77.5 % (40.0-76.0); PLATELET 153 x1000/uL (130-400); RED BLOOD CELL COUNT 3.26 mill/uL (4.7-6.1); RED CELL DISTRIBUTION WIDTH 13.5 % (11.6-14.6)
[2019-12-27 09:36] LABS: BG CARBOXYHEMOGLOBIN 0.2 % (0.5-1.5); BG DEOXYHEMOGLOBIN 2.9 % (0.0-5.0); BG FRACTION INSPIRED OXYGEN 28; BG HCO3 ACT 23.3 mmol/L (22.0-26.0); BG METHEMOGLOBIN 0.3 % (0.0-1.5); BG OXYGEN SATURATION 97.1 % (92.0-98.5); BG OXYHEMOGLOBIN 96.6 % (94.0-97.0); BG PCO2 33.3 mmHg (35.0-45.0); BG PH 7.463 (7.350-7.450); BG PO2 90.3 mmHg (75.0-100.0); BG SAMPLE SITE RIGHT RADIAL; BG TOTAL HEMOGLOBIN 10.6 g/dL (12.0-18.0); BG VENT MODE VENT - AC
[2019-12-27] MEDS ORDERED: INSULIN LISPRO 100 UNITS/ML SUBCUT SCH (12:00)
[2019-12-27] MEDS: CLONIDINE 0.1MG TABLET PO PRN (12:59)
[2019-12-27] MEDS: AZITHROMYCIN 500 MG in DEXT 5% WATER 250 ML IV SCH (12:59)
[2019-12-27] MEDS: INSULIN LISPRO 100 UNITS/ML SUBCUT SCH (17:48)
[2019-12-27] MEDS: SUCRALFATE 1 G/10 ML UDC PO SCH ×2 (18:04→20:07)
[2019-12-27] MEDS: VANCOMYCIN 1 G PREMIX 200 ML IV SCH (22:06)
[2019-12-28] VITALS (49 sets, daily range): BP systolic 121–167; BP diastolic 78–140
[2019-12-28] MEDS ORDERED: POTASSIUM CHLORIDE INJ 40 MEQ in DEXT 5% WATER 250 ML IV NR ×2
[2019-12-28] MEDS: BLOOD SUGAR DIAGNOSTIC STRIP TEST SCH ×4 (00:04→18:13)
[2019-12-28] MEDS: INSULIN LISPRO 100 UNITS/ML SUBCUT SCH ×4 (00:15→18:00)
[2019-12-28] MEDS: PIPERACILLIN/TAZOBACTAM 3.375 G in DEXT 5% WATER 100 ML IV SCH ×4 (01:24→20:04)
[2019-12-28] MEDS: FENTANYL CITRATE/PF 1,000 MCG in SODIUM CHLORIDE 0.9% 80 ML IV PRN (04:07)
[2019-12-28] MEDS: LACTULOSE 20G/30ML UDC PO SCH ×3 (05:05→21:51)
[2019-12-28] MEDS: VANCOMYCIN 1 G PREMIX 200 ML IV SCH ×2 (05:19→14:35)
[2019-12-28 05:33] LABS: BASOPHILS % 0.2 % (0.0-2.0); EOSINOPHILS % 1.8 % (0.0-5.0); HEMATOCRIT. 29.5 % (42.0-52.0); LYMPHOCYTES % 10.3 % (20.0-50.0); MEAN CORPUSCULAR HEMOGLOBIN 30.7 pg (28.0-32.0); MEAN CORPUSCULAR VOLUME 90.2 fL (80.0-94.0); MEAN PLATELET VOLUME 8.7 fl (7.4-10.4); MONOCYTES % 6.1 % (2.0-8.0); NEUTROPHILS % 81.6 % (40.0-76.0); PLATELET 184 x1000/uL (130-400); RED BLOOD CELL COUNT 3.27 mill/uL (4.7-6.1); RED CELL DISTRIBUTION WIDTH 13.6 % (11.6-14.6)
[2019-12-28 05:38] LABS: CHLORIDE 110 mEq/L (98-107)
[2019-12-28] MEDS: PANTOPRAZOLE SODIUM 40 MG/VIAL IV SCH ×2 (08:30→16:12)
[2019-12-28] MEDS: SUCRALFATE 1 G/10 ML UDC PO SCH ×5 (08:30→20:11)
[2019-12-28] MEDS: SODIUM CHLORIDE 0.9% 1,000 ML IV SCH ×2 (08:30→21:51)
[2019-12-28] MEDS: LEVETIRACETAM 500MG PREMIX 100 ML IV SCH ×2 (08:57→20:05)
[2019-12-28] MEDS: AZITHROMYCIN 500 MG in DEXT 5% WATER 250 ML IV SCH (12:58)
[2019-12-28] MEDS ORDERED: MIDAZOLAM HCL 5 MG/5 ML VIAL ONE (13:11)
[2019-12-28] MEDS ORDERED: FENTANYL CITRATE/PF 50MCG/ML 2ML VIAL ONE (13:11)
[2019-12-28] MEDS ORDERED: MIDAZOLAM HCL 5 MG/5 ML VIAL IV PRN (13:44)
[2019-12-28 17:09] LABS: BG BASE EXCESS -1.5 mmol/L (-2.0-2.0); BG CARBOXYHEMOGLOBIN 0.3 % (0.5-1.5); BG DEOXYHEMOGLOBIN 2.9 % (0.0-5.0); BG FRACTION INSPIRED OXYGEN 28; BG METHEMOGLOBIN 0.2 % (0.0-1.5); BG OXYGEN SATURATION 97.1 % (92.0-98.5); BG OXYHEMOGLOBIN 96.6 % (94.0-97.0); BG PCO2 33.2 mmHg (35.0-45.0); BG SAMPLE SITE RIGHT RADIAL; BG TOTAL HEMOGLOBIN 11.4 g/dL (12.0-18.0); BG VENT MODE VENT - AC
[2019-12-28] MEDS: CLONIDINE 0.1MG TABLET PO PRN (20:08)
[2019-12-28] MEDS: MIDAZOLAM HCL 100 MG in DEXT 5% WATER 80 ML IV PRN (21:54)
[2019-12-29] VITALS (47 sets, daily range): BP systolic 124–175; BP diastolic 78–105
[2019-12-29] MEDS: BLOOD SUGAR DIAGNOSTIC STRIP TEST SCH ×5 (00:12→23:53)
[2019-12-29] MEDS: PIPERACILLIN/TAZOBACTAM 3.375 G in DEXT 5% WATER 100 ML IV SCH ×4 (02:09→20:30)
[2019-12-29] MEDS: FENTANYL CITRATE/PF 1,000 MCG in SODIUM CHLORIDE 0.9% 80 ML IV PRN ×2 (02:13→18:28)
[2019-12-29] MEDS: LACTULOSE 20G/30ML UDC PO SCH (05:25)
[2019-12-29] MEDS: INSULIN LISPRO 100 UNITS/ML SUBCUT SCH ×5 (05:25→23:54)
[2019-12-29 06:49] LABS: BASOPHILS % 0.3 % (0.0-2.0); EOSINOPHILS % 1.1 % (0.0-5.0); HEMATOCRIT. 28.9 % (42.0-52.0); HEMOGLOBIN. 9.9 g/dL (14.0-18.0); LYMPHOCYTES % 8.1 % (20.0-50.0); MEAN CORPUSCULAR VOLUME 90.7 fL (80.0-94.0); MEAN PLATELET VOLUME 8.5 fl (7.4-10.4); MONOCYTES % 5.2 % (2.0-8.0); NEUTROPHILS % 85.3 % (40.0-76.0); PLATELET 222 x1000/uL (130-400); RED BLOOD CELL COUNT 3.19 mill/uL (4.7-6.1); RED CELL DISTRIBUTION WIDTH 13.3 % (11.6-14.6)
[2019-12-29 07:00] LABS: INR 1.1; PARTIAL THROMBOPLASTIN TIME 31.1 sec (23.4-31.0); PROTHROMBIN TIME 11.4 sec (9.6-11.0)
[2019-12-29 07:11] LABS: CHLORIDE 111 mEq/L (98-107)
[2019-12-29 08:37] LABS: BG BASE EXCESS 1.2 mmol/L (-2.0-2.0); BG CARBOXYHEMOGLOBIN 0.4 % (0.5-1.5); BG DEOXYHEMOGLOBIN 6.1 % (0.0-5.0); BG HCO3 ACT 25.8 mmol/L (22.0-26.0); BG METHEMOGLOBIN 0.3 % (0.0-1.5); BG OXYGEN SATURATION 93.9 % (92.0-98.5); BG OXYHEMOGLOBIN 93.2 % (94.0-97.0); BG PCO2 40.8 mmHg (35.0-45.0); BG PH 7.418 (7.350-7.450); BG PO2 72.2 mmHg (75.0-100.0); BG SAMPLE SITE RIGHT RADIAL; BG TOTAL HEMOGLOBIN 10.8 g/dL (12.0-18.0); BG VENT MODE VENT - AC
[2019-12-29] MEDS: PANTOPRAZOLE SODIUM 40 MG/VIAL IV SCH ×2 (08:46→17:06)
[2019-12-29] MEDS: SUCRALFATE 1 G/10 ML UDC PO SCH ×4 (08:46→20:31)
[2019-12-29] MEDS: LEVETIRACETAM 500MG PREMIX 100 ML IV SCH ×2 (08:47→20:30)
[2019-12-29] MEDS: SODIUM CHLORIDE 0.9% 1,000 ML IV SCH ×2 (10:20→23:54)
[2019-12-29] MEDS ORDERED: KCL 20MEQ/100ML PREMIX 100 ML IV NR (11:00)
[2019-12-29] MEDS: CLONIDINE 0.1MG TABLET PO PRN (11:19)
[2019-12-29] MEDS ORDERED: DOCUSATE SODIUM SUGAR FREE 100MG/10ML UDC GT PRN (11:45)
[2019-12-29] MEDS ORDERED: POTASSIUM CHLORIDE INJ 40 MEQ in DEXT 5% WATER 250 ML IV NR (13:00)
[2019-12-29] MEDS: ASPIRIN 81MG TABLET PO SCH (13:03)
[2019-12-29] MEDS: CLOPIDOGREL 75MG TABLET PO SCH (13:03)
[2019-12-29] MEDS: AMLODIPINE 5MG TABLET PO SCH (13:04)
[2019-12-29] MEDS ORDERED: LIDOCAINE HCL 1% 20ML VIAL (Pyxis) INJ ONE (14:48)
[2019-12-29] MEDS: MIDAZOLAM HCL 100 MG in DEXT 5% WATER 80 ML IV PRN (18:29)
[2019-12-29] MEDS: METOPROLOL TARTRATE 25MG TABLET PO SCH (20:30)
[2019-12-30] VITALS (50 sets, daily range): BP systolic 108–186; BP diastolic 58–128
[2019-12-30] MEDS: BLOOD SUGAR DIAGNOSTIC STRIP TEST SCH ×3 (05:13→18:39)
[2019-12-30] MEDS: INSULIN LISPRO 100 UNITS/ML SUBCUT SCH ×3 (05:16→17:22)
[2019-12-30 06:38] LABS: BASOPHILS % 0.4 % (0.0-2.0); EOSINOPHILS % 1.7 % (0.0-5.0); HEMATOCRIT. 27.9 % (42.0-52.0); HEMOGLOBIN. 9.5 g/dL (14.0-18.0); LYMPHOCYTES % 9.1 % (20.0-50.0); MEAN CORPUSCULAR HEMOGLOBIN 30.7 pg (28.0-32.0); MEAN CORPUSCULAR VOLUME 90.2 fL (80.0-94.0); MEAN PLATELET VOLUME 8.4 fl (7.4-10.4); MONOCYTES % 7.1 % (2.0-8.0); NEUTROPHILS % 81.7 % (40.0-76.0); PLATELET 258 x1000/uL (130-400); RED BLOOD CELL COUNT 3.09 mill/uL (4.7-6.1); RED CELL DISTRIBUTION WIDTH 13.7 % (11.6-14.6)
[2019-12-30 06:39] LABS: CHLORIDE 107 mEq/L (98-107)
[2019-12-30] MEDS: LEVETIRACETAM 500MG PREMIX 100 ML IV SCH ×2 (08:48→21:43)
[2019-12-30] MEDS: AMLODIPINE 5MG TABLET PO SCH (08:48)
[2019-12-30] MEDS: ASPIRIN 81MG TABLET PO SCH (08:48)
[2019-12-30] MEDS: METOPROLOL TARTRATE 25MG TABLET PO SCH ×2 (08:48→21:44)
[2019-12-30] MEDS: SUCRALFATE 1 G/10 ML UDC PO SCH ×4 (08:48→21:43)
[2019-12-30] MEDS: PANTOPRAZOLE SODIUM 40 MG/VIAL IV SCH ×2 (08:48→17:22)
[2019-12-30] MEDS: CLOPIDOGREL 75MG TABLET PO SCH (08:49)
[2019-12-30 09:12] LABS: BG BASE EXCESS 3.9 mmol/L (-2.0-2.0); BG CARBOXYHEMOGLOBIN 0.3 % (0.5-1.5); BG FRACTION INSPIRED OXYGEN 35; BG HCO3 ACT 27.6 mmol/L (22.0-26.0); BG METHEMOGLOBIN 0.3 % (0.0-1.5); BG OXYHEMOGLOBIN 97.4 % (94.0-97.0); BG PCO2 38.1 mmHg (35.0-45.0); BG PH 7.478 (7.350-7.450); BG PO2 105.9 mmHg (75.0-100.0); BG SAMPLE SITE RIGHT RADIAL; BG TOTAL HEMOGLOBIN 9.8 g/dL (12.0-18.0); BG VENT MODE VENT - AC
[2019-12-30] MEDS ORDERED: POTASSIUM CHLORIDE INJ 40 MEQ in DEXT 5% WATER 250 ML IV ONE (13:00)
[2019-12-30] MEDS: SODIUM CHLORIDE 0.9% 1,000 ML IV SCH (13:36)
[2019-12-31] VITALS (43 sets, daily range): BP systolic 114–174; BP diastolic 72–104
[2019-12-31] MEDS: BLOOD SUGAR DIAGNOSTIC STRIP TEST SCH ×5 (00:40→23:25)
[2019-12-31] MEDS: INSULIN LISPRO 100 UNITS/ML SUBCUT SCH ×5 (00:41→23:25)
[2019-12-31] MEDS: FENTANYL CITRATE/PF 1,000 MCG in SODIUM CHLORIDE 0.9% 80 ML IV PRN (01:31)
[2019-12-31] MEDS: MIDAZOLAM HCL 100 MG in DEXT 5% WATER 80 ML IV PRN ×2 (01:32→20:25)
[2019-12-31] MEDS: SODIUM CHLORIDE 0.9% 1,000 ML IV SCH ×2 (04:05→17:04)
[2019-12-31 06:22] LABS: CHLORIDE 104 mEq/L (98-107)
[2019-12-31 06:40] LABS: BASOPHILS % 0.6 % (0.0-2.0); EOSINOPHILS % 1.4 % (0.0-5.0); HEMATOCRIT. 26.7 % (42.0-52.0); HEMOGLOBIN. 9.2 g/dL (14.0-18.0); LYMPHOCYTES % 15.6 % (20.0-50.0); MEAN CORPUSCULAR HEMOGLOBIN 31.2 pg (28.0-32.0); MEAN CORPUSCULAR VOLUME 90.6 fL (80.0-94.0); MEAN PLATELET VOLUME 8.3 fl (7.4-10.4); MONOCYTES % 10.6 % (2.0-8.0); NEUTROPHILS % 71.8 % (40.0-76.0); PLATELET 285 x1000/uL (130-400); RED BLOOD CELL COUNT 2.95 mill/uL (4.7-6.1); RED CELL DISTRIBUTION WIDTH 13.5 % (11.6-14.6)
[2019-12-31] MEDS: SUCRALFATE 1 G/10 ML UDC PO SCH ×4 (08:36→20:44)
[2019-12-31] MEDS: METOPROLOL TARTRATE 25MG TABLET PO SCH ×2 (08:37→20:29)
[2019-12-31] MEDS: PANTOPRAZOLE SODIUM 40 MG/VIAL IV SCH ×2 (08:37→17:03)
[2019-12-31] MEDS: AMLODIPINE 5MG TABLET PO SCH (08:37)
[2019-12-31] MEDS: CLOPIDOGREL 75MG TABLET PO SCH (08:37)
[2019-12-31] MEDS: ASPIRIN 81MG TABLET PO SCH (08:37)
[2019-12-31] MEDS: LEVETIRACETAM 500MG PREMIX 100 ML IV SCH ×2 (08:37→20:29)
[2019-12-31] MEDS ORDERED: POTASSIUM CHLORIDE INJ 40 MEQ in DEXT 5% WATER 250 ML IV SCH (12:00)
[2019-12-31 16:29] LABS: BG BASE EXCESS -1.8 mmol/L (-2.0-2.0); BG CARBOXYHEMOGLOBIN 0.3 % (0.5-1.5); BG DEOXYHEMOGLOBIN 2.2 % (0.0-5.0); BG FRACTION INSPIRED OXYGEN 35; BG METHEMOGLOBIN 0.1 % (0.0-1.5); BG OXYGEN SATURATION 97.8 % (92.0-98.5); BG OXYHEMOGLOBIN 97.4 % (94.0-97.0); BG PCO2 33.9 mmHg (35.0-45.0); BG PH 7.431 (7.350-7.450); BG PO2 112.7 mmHg (75.0-100.0); BG SAMPLE SITE RIGHT RADIAL; BG TOTAL HEMOGLOBIN 10.2 g/dL (12.0-18.0); BG VENT MODE VENT - CPAP
[2020-01-01] VITALS (61 sets, daily range): BP systolic 120–187; BP diastolic 80–116
[2020-01-01] MEDS: FENTANYL CITRATE/PF 1,000 MCG in SODIUM CHLORIDE 0.9% 80 ML IV PRN ×3 (00:15→21:19)
[2020-01-01] MEDS: INSULIN LISPRO 100 UNITS/ML SUBCUT SCH ×3 (05:18→18:12)
[2020-01-01] MEDS: BLOOD SUGAR DIAGNOSTIC STRIP TEST SCH ×3 (05:18→18:04)
[2020-01-01 06:03] LABS: BASOPHILS % 0.6 % (0.0-2.0); EOSINOPHILS % 2.1 % (0.0-5.0); HEMATOCRIT. 25.7 % (42.0-52.0); HEMOGLOBIN. 8.8 g/dL (14.0-18.0); LYMPHOCYTES % 16.9 % (20.0-50.0); MEAN CORPUSCULAR HEMOGLOBIN 31.2 pg (28.0-32.0); MEAN CORPUSCULAR VOLUME 91.1 fL (80.0-94.0); MEAN PLATELET VOLUME 7.7 fl (7.4-10.4); NEUTROPHILS % 70.4 % (40.0-76.0); PLATELET 279 x1000/uL (130-400); RED BLOOD CELL COUNT 2.82 mill/uL (4.7-6.1)
[2020-01-01 06:17] LABS: CHLORIDE 106 mEq/L (98-107)
[2020-01-01] MEDS: SODIUM CHLORIDE 0.9% 1,000 ML IV SCH ×2 (06:31→18:11)
[2020-01-01] MEDS: ASPIRIN 81MG TABLET PO SCH (08:08)
[2020-01-01] MEDS: CLOPIDOGREL 75MG TABLET PO SCH (08:08)
[2020-01-01] MEDS: SUCRALFATE 1 G/10 ML UDC PO SCH ×4 (08:19→20:17)
[2020-01-01] MEDS: PANTOPRAZOLE SODIUM 40 MG/VIAL IV SCH ×2 (08:19→16:34)
[2020-01-01] MEDS: LEVETIRACETAM 500MG PREMIX 100 ML IV SCH ×2 (08:20→20:08)
[2020-01-01] MEDS: AMLODIPINE 5MG TABLET PO SCH (08:20)
[2020-01-01] MEDS: METOPROLOL TARTRATE 25MG TABLET PO SCH ×2 (08:20→20:07)
[2020-01-01] MEDS: ENALAPRIL 1.25MG/ML VIAL 1ML IV PRN ×2 (11:00→21:36)
[2020-01-01] MEDS ORDERED: HYDRALAZINE 20MG/ML VIAL IV PRN (14:00)
[2020-01-01 18:48] LABS: BG BASE EXCESS 3.7 mmol/L (-2.0-2.0); BG CARBOXYHEMOGLOBIN 0.3 % (0.5-1.5); BG DEOXYHEMOGLOBIN 1.3 % (0.0-5.0); BG FRACTION INSPIRED OXYGEN 100; BG HCO3 ACT 26.7 mmol/L (22.0-26.0); BG METHEMOGLOBIN 0.3 % (0.0-1.5); BG OXYGEN SATURATION 98.7 % (92.0-98.5); BG OXYHEMOGLOBIN 98.1 % (94.0-97.0); BG PCO2 34.9 mmHg (35.0-45.0); BG PH 7.502 (7.350-7.450); BG PO2 136.4 mmHg (75.0-100.0); BG SAMPLE SITE RIGHT RADIAL; BG TOTAL HEMOGLOBIN 11.3 g/dL (12.0-18.0); BG VENT MODE VENT - AC
[2020-01-01] MEDS: MIDAZOLAM HCL 100 MG in DEXT 5% WATER 80 ML IV PRN (21:54)
[2020-01-02] VITALS (48 sets, daily range): BP systolic 109–160; BP diastolic 73–99
[2020-01-02] MEDS: BLOOD SUGAR DIAGNOSTIC STRIP TEST SCH ×4 (00:32→17:32)
[2020-01-02] MEDS: INSULIN LISPRO 100 UNITS/ML SUBCUT SCH ×4 (00:32→17:32)
[2020-01-02] MEDS: ACETAMINOPHEN 650MG/20.3ML UDC PO PRN (01:46)
[2020-01-02 05:39] LABS: BASOPHILS % 0.3 % (0.0-2.0); EOSINOPHILS % 1.2 % (0.0-5.0); HEMATOCRIT. 31.2 % (42.0-52.0); HEMOGLOBIN. 10.8 g/dL (14.0-18.0); LYMPHOCYTES % 14.5 % (20.0-50.0); MEAN CORPUSCULAR HEMOGLOBIN 31.5 pg (28.0-32.0); MEAN CORPUSCULAR VOLUME 90.9 fL (80.0-94.0); MEAN PLATELET VOLUME 7.7 fl (7.4-10.4); MONOCYTES % 9.4 % (2.0-8.0); NEUTROPHILS % 74.6 % (40.0-76.0); PLATELET 325 x1000/uL (130-400); RED BLOOD CELL COUNT 3.43 mill/uL (4.7-6.1); RED CELL DISTRIBUTION WIDTH 13.5 % (11.6-14.6)
[2020-01-02 05:49] LABS: CHLORIDE 100 mEq/L (98-107)
[2020-01-02 05:59] LABS: CREATINE KINASE 199 IU/L (39-308)
[2020-01-02] MEDS: SODIUM CHLORIDE 0.9% 1,000 ML IV SCH ×2 (06:28→21:35)
[2020-01-02] MEDS: SUCRALFATE 1 G/10 ML UDC PO SCH ×4 (08:48→21:37)
[2020-01-02] MEDS: FENTANYL CITRATE/PF 1,000 MCG in SODIUM CHLORIDE 0.9% 80 ML IV PRN (09:28)
[2020-01-02] MEDS: CLOPIDOGREL 75MG TABLET PO SCH (09:38)
[2020-01-02] MEDS: PANTOPRAZOLE SODIUM 40 MG/VIAL IV SCH ×2 (09:38→17:19)
[2020-01-02] MEDS: AMLODIPINE 5MG TABLET PO SCH (09:39)
[2020-01-02] MEDS: METOPROLOL TARTRATE 25MG TABLET PO SCH ×2 (09:39→21:35)
[2020-01-02] MEDS: ASPIRIN 81MG TABLET PO SCH (09:39)
[2020-01-02] MEDS: LEVETIRACETAM 500MG PREMIX 100 ML IV SCH ×2 (09:40→21:34)
[2020-01-02] MEDS ORDERED: SODIUM CHLORIDE 0.9% 500 ML IV ONE (12:45)
[2020-01-02] MEDS ORDERED: ACETAZOLAMIDE SODIUM 500MG/VIAL IV ONE (13:00)
[2020-01-02] MEDS: MIDAZOLAM HCL 100 MG in DEXT 5% WATER 80 ML IV PRN (20:34)
[2020-01-03] VITALS (35 sets, daily range): BP systolic 130–170; BP diastolic 78–105
[2020-01-03] MEDS: BLOOD SUGAR DIAGNOSTIC STRIP TEST SCH ×4 (00:23→17:14)
[2020-01-03] MEDS: INSULIN LISPRO 100 UNITS/ML SUBCUT SCH ×4 (00:36→17:23)
[2020-01-03] MEDS: LORAZEPAM 2MG/ML CPJ IV PRN (01:18)
[2020-01-03 08:31] LABS: BG BASE EXCESS -2.8 mmol/L (-2.0-2.0); BG DEOXYHEMOGLOBIN 1.6 % (0.0-5.0); BG FRACTION INSPIRED OXYGEN 35; BG HCO3 ACT 21.4 mmol/L (22.0-26.0); BG METHEMOGLOBIN 0.2 % (0.0-1.5); BG OXYGEN SATURATION 98.4 % (92.0-98.5); BG OXYHEMOGLOBIN 98.2 % (94.0-97.0); BG PCO2 34.9 mmHg (35.0-45.0); BG PH 7.406 (7.350-7.450); BG PO2 123.3 mmHg (75.0-100.0); BG SAMPLE SITE RIGHT RADIAL; BG TOTAL HEMOGLOBIN 10.7 g/dL (12.0-18.0); BG VENT MODE VENT - SIMV
[2020-01-03] MEDS: AMLODIPINE 5MG TABLET PO SCH (10:06)
[2020-01-03] MEDS: LEVETIRACETAM 500MG PREMIX 100 ML IV SCH ×2 (10:07→22:00)
[2020-01-03] MEDS: PANTOPRAZOLE SODIUM 40 MG/VIAL IV SCH ×2 (10:07→17:23)
[2020-01-03] MEDS: ASPIRIN 81MG TABLET PO SCH (10:07)
[2020-01-03] MEDS: CLOPIDOGREL 75MG TABLET PO SCH (10:07)
[2020-01-03] MEDS: METOPROLOL TARTRATE 25MG TABLET PO SCH ×2 (10:07→22:06)
[2020-01-03] MEDS: SUCRALFATE 1 G/10 ML UDC PO SCH ×4 (10:08→22:05)
[2020-01-03] MEDS: SODIUM CHLORIDE 0.9% 1,000 ML IV SCH (10:09)
[2020-01-03] MEDS: MORPHINE SULFATE 2 MG/ML CPJ (NOT FOR IM USE) IV PRN (15:47)
[2020-01-03] MEDS: ENALAPRIL 1.25MG/ML VIAL 1ML IV PRN (17:33)
[2020-01-04] VITALS (14 sets, daily range): BP systolic 123–158; BP diastolic 75–106
[2020-01-04] MEDS: BLOOD SUGAR DIAGNOSTIC STRIP TEST SCH ×5 (00:02→23:41)
[2020-01-04] MEDS: INSULIN LISPRO 100 UNITS/ML SUBCUT SCH ×5 (00:02→23:48)
[2020-01-04] MEDS: SODIUM CHLORIDE 0.9% 1,000 ML IV SCH ×2 (00:04→12:40)
[2020-01-04] MEDS: SUCRALFATE 1 G/10 ML UDC PO SCH ×4 (05:39→20:20)
[2020-01-04] MEDS: CLOPIDOGREL 75MG TABLET PO SCH (09:06)
[2020-01-04] MEDS: AMLODIPINE 5MG TABLET PO SCH (09:06)
[2020-01-04] MEDS: ASPIRIN 81MG TABLET PO SCH (09:06)
[2020-01-04] MEDS: METOPROLOL TARTRATE 25MG TABLET PO SCH ×2 (09:07→20:20)
[2020-01-04] MEDS: PANTOPRAZOLE SODIUM 40 MG/VIAL IV SCH ×2 (09:07→17:35)
[2020-01-04] MEDS: LEVETIRACETAM 500MG PREMIX 100 ML IV SCH ×2 (09:07→20:20)
[2020-01-04] MEDS: LORAZEPAM 2MG/ML CPJ IV PRN (15:30)
[2020-01-04] MEDS: MORPHINE SULFATE 2 MG/ML CPJ (NOT FOR IM USE) IV PRN (18:44)
[2020-01-05] VITALS (12 sets, daily range): BP systolic 132–164; BP diastolic 84–102
[2020-01-05] MEDS: SODIUM CHLORIDE 0.9% 1,000 ML IV SCH ×2 (01:55→17:50)
[2020-01-05] MEDS: BLOOD SUGAR DIAGNOSTIC STRIP TEST SCH ×4 (06:27→23:18)
[2020-01-05] MEDS: INSULIN LISPRO 100 UNITS/ML SUBCUT SCH ×4 (06:32→23:18)
[2020-01-05] MEDS: ENALAPRIL 1.25MG/ML VIAL 1ML IV PRN (07:12)
[2020-01-05] MEDS: LEVETIRACETAM 500MG PREMIX 100 ML IV SCH ×2 (09:15→20:22)
[2020-01-05] MEDS: CLOPIDOGREL 75MG TABLET PO SCH (09:15)
[2020-01-05] MEDS: SUCRALFATE 1 G/10 ML UDC PO SCH ×4 (09:15→20:23)
[2020-01-05] MEDS: PANTOPRAZOLE SODIUM 40 MG/VIAL IV SCH ×2 (09:15→17:50)
[2020-01-05] MEDS: ASPIRIN 81MG TABLET PO SCH (09:15)
[2020-01-05] MEDS: METOPROLOL TARTRATE 25MG TABLET PO SCH ×2 (09:16→20:23)
[2020-01-05] MEDS: AMLODIPINE 5MG TABLET PO SCH (09:16)
[2020-01-05] MEDS: ACETAMINOPHEN 650MG/20.3ML UDC PO PRN (16:03)
[2020-01-05] MEDS: INSULIN GLARGINE UD 100 UNITS/ML SYR SUBCUT SCH (21:36)
[2020-01-06] VITALS (13 sets, daily range): BP systolic 141–168; BP diastolic 89–100
[2020-01-06] MEDS: SODIUM CHLORIDE 0.9% 1,000 ML IV SCH (05:12)
[2020-01-06] MEDS: ENALAPRIL 1.25MG/ML VIAL 1ML IV PRN (05:12)
[2020-01-06] MEDS: BLOOD SUGAR DIAGNOSTIC STRIP TEST SCH ×3 (05:26→17:26)
[2020-01-06] MEDS: INSULIN LISPRO 100 UNITS/ML SUBCUT SCH ×3 (05:26→17:26)
[2020-01-06] MEDS: METOPROLOL TARTRATE 25MG TABLET PO SCH ×2 (09:18→20:47)
[2020-01-06] MEDS: SUCRALFATE 1 G/10 ML UDC PO SCH ×4 (09:18→20:46)
[2020-01-06] MEDS: AMLODIPINE 5MG TABLET PO SCH (09:18)
[2020-01-06] MEDS: ASPIRIN 81MG TABLET PO SCH (09:18)
[2020-01-06] MEDS: PANTOPRAZOLE SODIUM 40 MG/VIAL IV SCH ×2 (09:18→17:53)
[2020-01-06] MEDS: CLOPIDOGREL 75MG TABLET PO SCH (09:18)
[2020-01-06] MEDS: LEVETIRACETAM 500MG PREMIX 100 ML IV SCH ×2 (09:19→21:04)
[2020-01-06] MEDS: ACETAMINOPHEN 650MG/20.3ML UDC PO PRN ×2 (09:19→20:46)
[2020-01-07] VITALS (17 sets, daily range): BP systolic 123–156; BP diastolic 81–98
[2020-01-07] MEDS: BLOOD SUGAR DIAGNOSTIC STRIP TEST SCH ×5 (00:49→23:24)
[2020-01-07] MEDS: INSULIN LISPRO 100 UNITS/ML SUBCUT SCH ×5 (00:57→23:30)
[2020-01-07] MEDS: INSULIN GLARGINE UD 100 UNITS/ML SYR SUBCUT SCH ×2 (00:58→23:18)
[2020-01-07 05:27] LABS: CHLORIDE 108 mEq/L (98-107)
[2020-01-07 06:24] LABS: BASOPHILS % 0.5 % (0.0-2.0); EOSINOPHILS % 0.8 % (0.0-5.0); HEMATOCRIT. 27.3 % (42.0-52.0); HEMOGLOBIN. 9.3 g/dL (14.0-18.0); LYMPHOCYTES % 11.8 % (20.0-50.0); MEAN CORPUSCULAR HEMOGLOBIN 30.3 pg (28.0-32.0); MEAN CORPUSCULAR VOLUME 88.3 fL (80.0-94.0); MEAN PLATELET VOLUME 8.2 fl (7.4-10.4); MONOCYTES % 9.6 % (2.0-8.0); NEUTROPHILS % 77.3 % (40.0-76.0); PLATELET 327 x1000/uL (130-400); RED BLOOD CELL COUNT 3.09 mill/uL (4.7-6.1); RED CELL DISTRIBUTION WIDTH 13.9 % (11.6-14.6)
[2020-01-07] MEDS: LEVETIRACETAM 500MG PREMIX 100 ML IV SCH ×2 (08:36→21:40)
[2020-01-07] MEDS: AMLODIPINE 5MG TABLET PO SCH (08:36)
[2020-01-07] MEDS: SUCRALFATE 1 G/10 ML UDC PO SCH ×4 (08:36→21:26)
[2020-01-07] MEDS: PANTOPRAZOLE SODIUM 40 MG/VIAL IV SCH ×2 (08:37→17:00)
[2020-01-07] MEDS: SODIUM CHLORIDE 0.9% 1,000 ML IV SCH (08:37)
[2020-01-07] MEDS: CLOPIDOGREL 75MG TABLET PO SCH (08:37)
[2020-01-07] MEDS: ASPIRIN 81MG TABLET PO SCH (08:37)
[2020-01-07] MEDS: METOPROLOL TARTRATE 25MG TABLET PO SCH ×2 (08:40→21:37)
[2020-01-07] MEDS: IPRATROPIUM BROMIDE (0.02%) 0.5MG/2.5ML NEB HHN SCH ×3 (08:42→20:44)
[2020-01-07 08:49] LABS: BG BASE EXCESS 3.2 mmol/L (-2.0-2.0); BG CARBOXYHEMOGLOBIN 0.3 % (0.5-1.5); BG DEOXYHEMOGLOBIN 2.4 % (0.0-5.0); BG FRACTION INSPIRED OXYGEN 35; BG HCO3 ACT 26.9 mmol/L (22.0-26.0); BG METHEMOGLOBIN 0.3 % (0.0-1.5); BG OXYGEN SATURATION 97.6 % (92.0-98.5); BG PCO2 37.5 mmHg (35.0-45.0); BG PH 7.473 (7.350-7.450); BG SAMPLE SITE RIGHT RADIAL; BG TOTAL HEMOGLOBIN 11.1 g/dL (12.0-18.0); BG VENT MODE VENT - SIMV
[2020-01-07] MEDS ORDERED: RACEPINEPHRINE 2.25% 0.5ML NEB VIAL HHN NR (17:15)
[2020-01-07] MEDS ORDERED: EPINEPHRINE 1:1000 1 MG/ML AMP INJ ONE (17:30)
[2020-01-07] MEDS ORDERED: OXYMETAZOLINE HCL NASAL SPRAY 15ML BOTHNSTRLS PRN (17:30)
[2020-01-07] MEDS ORDERED: EPINEPHRINE 0.1MG/ML (1:10,000) 10ML SYR ENDO ONE (17:45)
[2020-01-07] MEDS: METOCLOPRAMIDE HCL 10MG/2ML VIAL IV SCH ×2 (18:00→23:32)
[2020-01-07] MEDS ORDERED: ROCURONIUM BROMIDE 10MG/ML VIAL 5ML IV ONE (18:28)
[2020-01-07 19:57] LABS: HEMOGLOBIN 8.2 g/dL (14.0-18.0)
[2020-01-07] MEDS: ACETAMINOPHEN 650MG/20.3ML UDC PO PRN (21:26)
[2020-01-07] MEDS ORDERED: POTASSIUM CHLORIDE 20MEQ TABLET SR PO ONE (23:00)
[2020-01-08] VITALS (36 sets, daily range): BP systolic 108–150; BP diastolic 70–97
[2020-01-08] MEDS: IPRATROPIUM BROMIDE (0.02%) 0.5MG/2.5ML NEB HHN SCH ×5 (02:44→23:52)
[2020-01-08] MEDS: METOCLOPRAMIDE HCL 10MG/2ML VIAL IV SCH ×4 (05:24→23:06)
[2020-01-08] MEDS: BLOOD SUGAR DIAGNOSTIC STRIP TEST SCH ×4 (05:28→23:07)
[2020-01-08] MEDS: SUCRALFATE 1 G/10 ML UDC PO SCH ×4 (05:30→20:31)
[2020-01-08] MEDS: INSULIN LISPRO 100 UNITS/ML SUBCUT SCH ×4 (05:37→23:06)
[2020-01-08 05:41] LABS: CHLORIDE 107 mEq/L (98-107)
[2020-01-08 05:59] LABS: BASOPHILS % 0.3 % (0.0-2.0); EOSINOPHILS % 1.3 % (0.0-5.0); HEMOGLOBIN. 7.2 g/dL (14.0-18.0); LYMPHOCYTES % 8.2 % (20.0-50.0); MEAN CORPUSCULAR VOLUME 88.8 fL (80.0-94.0); MEAN PLATELET VOLUME 8.3 fl (7.4-10.4); MONOCYTES % 7.4 % (2.0-8.0); NEUTROPHILS % 82.8 % (40.0-76.0); PLATELET 355 x1000/uL (130-400); RED BLOOD CELL COUNT 2.48 mill/uL (4.7-6.1); RED CELL DISTRIBUTION WIDTH 13.7 % (11.6-14.6)
[2020-01-08] MEDS: PANTOPRAZOLE SODIUM 40 MG/VIAL IV SCH ×2 (08:01→17:46)
[2020-01-08] MEDS: LEVETIRACETAM 500MG PREMIX 100 ML IV SCH ×2 (08:01→20:32)
[2020-01-08] MEDS: METOPROLOL TARTRATE 25MG TABLET PO SCH ×2 (08:02→20:32)
[2020-01-08] MEDS: AMLODIPINE 5MG TABLET PO SCH (08:05)
[2020-01-08] MEDS: SODIUM CHLORIDE 0.9% 1,000 ML IV SCH ×3 (10:37→23:06)
[2020-01-08] MEDS ORDERED: POTASSIUM CHLORIDE 20MEQ/PACKET PEG NR (11:15)
[2020-01-08 21:43] LABS: HEMATOCRIT 30.4 % (42.0-52.0); HEMOGLOBIN 10.3 g/dL (14.0-18.0); MEAN CORPUSCULAR HEMOGLOBIN 29.5 pg (28.0-32.0); PLATELET 335 x1000/uL (130-400); RED BLOOD CELL COUNT 3.49 mill/uL (4.7-6.1); RED CELL DISTRIBUTION WIDTH 15.3 % (11.6-14.6)
[2020-01-08 21:58] LABS: INR 1.1; PROTHROMBIN TIME 11.4 sec (9.6-11.0)
[2020-01-08] MEDS: INSULIN GLARGINE UD 100 UNITS/ML SYR SUBCUT SCH (22:57)
[2020-01-09] VITALS (12 sets, daily range): BP systolic 121–156; BP diastolic 77–108
[2020-01-09] MEDS: METOCLOPRAMIDE HCL 10MG/2ML VIAL IV SCH ×4 (05:33→23:12)
[2020-01-09] MEDS: INSULIN LISPRO 100 UNITS/ML SUBCUT SCH ×4 (05:34→23:13)
[2020-01-09] MEDS: BLOOD SUGAR DIAGNOSTIC STRIP TEST SCH ×4 (05:35→23:08)
[2020-01-09] MEDS: SUCRALFATE 1 G/10 ML UDC PO SCH ×4 (08:06→20:18)
[2020-01-09] MEDS: PANTOPRAZOLE SODIUM 40 MG/VIAL IV SCH ×2 (08:06→17:26)
[2020-01-09] MEDS: ASPIRIN 81MG TABLET PO SCH (08:07)
[2020-01-09] MEDS: LEVETIRACETAM 500MG PREMIX 100 ML IV SCH ×2 (08:09→20:18)
[2020-01-09] MEDS: AMLODIPINE 5MG TABLET PO SCH (08:09)
[2020-01-09] MEDS: METOPROLOL TARTRATE 25MG TABLET PO SCH ×2 (08:09→20:18)
[2020-01-09] MEDS: IPRATROPIUM BROMIDE (0.02%) 0.5MG/2.5ML NEB HHN SCH ×3 (08:41→20:37)
[2020-01-09] MEDS: SODIUM CHLORIDE 0.9% 1,000 ML IV SCH (12:47)
[2020-01-09] MEDS: INSULIN GLARGINE UD 100 UNITS/ML SYR SUBCUT SCH (22:45)
[2020-01-10] VITALS (12 sets, daily range): BP systolic 127–160; BP diastolic 82–144
[2020-01-10] MEDS: ACETAMINOPHEN 650MG/20.3ML UDC PO PRN (00:53)
[2020-01-10] MEDS: SODIUM CHLORIDE 0.9% 1,000 ML IV SCH ×2 (03:25→15:53)
[2020-01-10] MEDS: METOCLOPRAMIDE HCL 10MG/2ML VIAL IV SCH ×3 (05:47→17:25)
[2020-01-10] MEDS: INSULIN LISPRO 100 UNITS/ML SUBCUT SCH ×3 (05:49→17:26)
[2020-01-10] MEDS: BLOOD SUGAR DIAGNOSTIC STRIP TEST SCH ×3 (05:50→17:26)
[2020-01-10] MEDS: SUCRALFATE 1 G/10 ML UDC PO SCH ×4 (08:21→22:24)
[2020-01-10] MEDS: ASPIRIN 81MG TABLET PO SCH (08:21)
[2020-01-10] MEDS: PANTOPRAZOLE SODIUM 40 MG/VIAL IV SCH ×2 (08:21→17:25)
[2020-01-10] MEDS: LEVETIRACETAM 500MG PREMIX 100 ML IV SCH ×2 (08:21→22:24)
[2020-01-10] MEDS: AMLODIPINE 5MG TABLET PO SCH (08:22)
[2020-01-10] MEDS: METOPROLOL TARTRATE 25MG TABLET PO SCH ×2 (08:22→22:25)
[2020-01-10] MEDS: IPRATROPIUM BROMIDE (0.02%) 0.5MG/2.5ML NEB HHN SCH ×3 (09:32→20:09)
[2020-01-11] VITALS (14 sets, daily range): BP systolic 117–157; BP diastolic 78–115
[2020-01-11] MEDS: INSULIN LISPRO 100 UNITS/ML SUBCUT SCH ×4 (00:29→17:29)
[2020-01-11] MEDS: METOCLOPRAMIDE HCL 10MG/2ML VIAL IV SCH ×4 (00:29→17:28)
[2020-01-11] MEDS: INSULIN GLARGINE UD 100 UNITS/ML SYR SUBCUT SCH ×2 (00:31→23:00)
[2020-01-11] MEDS: IPRATROPIUM BROMIDE (0.02%) 0.5MG/2.5ML NEB HHN SCH ×6 (02:11→20:57)
[2020-01-11] MEDS: BLOOD SUGAR DIAGNOSTIC STRIP TEST SCH ×4 (06:00→17:28)
[2020-01-11] MEDS: SODIUM CHLORIDE 0.9% 1,000 ML IV SCH ×2 (06:21→18:04)
[2020-01-11] MEDS: SUCRALFATE 1 G/10 ML UDC PO SCH ×4 (06:21→22:30)
[2020-01-11 06:48] LABS: BASOPHILS % 0.8 % (0.0-2.0); EOSINOPHILS % 2.8 % (0.0-5.0); HEMATOCRIT. 30.6 % (42.0-52.0); HEMOGLOBIN. 10.5 g/dL (14.0-18.0); LYMPHOCYTES % 14.1 % (20.0-50.0); MEAN CORPUSCULAR HEMOGLOBIN 29.5 pg (28.0-32.0); MEAN CORPUSCULAR VOLUME 86.4 fL (80.0-94.0); MEAN PLATELET VOLUME 8.1 fl (7.4-10.4); MONOCYTES % 6.3 % (2.0-8.0); PLATELET 328 x1000/uL (130-400); RED BLOOD CELL COUNT 3.55 mill/uL (4.7-6.1); RED CELL DISTRIBUTION WIDTH 14.4 % (11.6-14.6)
[2020-01-11 07:02] LABS: CHLORIDE 100 mEq/L (98-107)
[2020-01-11] MEDS: PANTOPRAZOLE SODIUM 40 MG/VIAL IV SCH ×2 (08:26→17:32)
[2020-01-11] MEDS: ASPIRIN 81MG TABLET PO SCH (08:26)
[2020-01-11] MEDS: AMLODIPINE 5MG TABLET PO SCH (08:27)
[2020-01-11] MEDS: METOPROLOL TARTRATE 25MG TABLET PO SCH ×2 (08:28→22:30)
[2020-01-11] MEDS: LEVETIRACETAM 500MG PREMIX 100 ML IV SCH ×2 (11:06→22:31)
[2020-01-11] MEDS ORDERED: DILTIAZEM HCL 5MG/ML 5ML VIAL IV NR (21:45)
[2020-01-12] VITALS: BP 150/91
[2020-01-12] MEDS: BLOOD SUGAR DIAGNOSTIC STRIP TEST SCH ×2 (00:20→06:27)
[2020-01-12] MEDS: METOCLOPRAMIDE HCL 10MG/2ML VIAL IV SCH ×2 (00:27→06:27)
[2020-01-12] MEDS: INSULIN LISPRO 100 UNITS/ML SUBCUT SCH ×2 (00:37→06:27)
[2020-01-12 02:00] VITALS: BP 141/96
[2020-01-12] MEDS: IPRATROPIUM BROMIDE (0.02%) 0.5MG/2.5ML NEB HHN SCH ×2 (02:00→08:39)
[2020-01-12 04:00] VITALS: BP 146/98
[2020-01-12 06:00] VITALS: BP 161/117
[2020-01-12 08:00] VITALS: BP 153/104
[2020-01-12] MEDS: PANTOPRAZOLE SODIUM 40 MG/VIAL IV SCH (08:30)
[2020-01-12] MEDS: SUCRALFATE 1 G/10 ML UDC PO SCH (08:30)
[2020-01-12] MEDS: ASPIRIN 81MG TABLET PO SCH (08:30)
[2020-01-12] MEDS: METOPROLOL TARTRATE 25MG TABLET PO SCH (08:30)
[2020-01-12] MEDS: SODIUM CHLORIDE 0.9% 1,000 ML IV SCH (08:31)
[2020-01-12] MEDS: AMLODIPINE 5MG TABLET PO SCH (08:31)
[2020-01-12] MEDS: LEVETIRACETAM 500MG PREMIX 100 ML IV SCH (09:11)
[2020-01-12 10:00] VITALS: BP 152/102
== END 2020-01-12 11:30 | DRG 3 ==
LOC: ER 07:03 → MICUSO 09:21 → EDBEDREQTM 09:23 → EDBEDREQ 09:23 → ENRESERV 09:46 → CVICU 12-26 10:30 → 5EST 01-03 16:58
PROVIDERS: ADMIT Internal Medicine; ATTEND Hospitalist
PROC: 5A1955Z Respiratory Ventilation, Greater than 96 Consecutive Hours (ICD-10-PCS; principal; 2019-12-24)
PROC: 0BH17EZ Insertion of Endotracheal Airway into Trachea, Via Natural or Artificial Opening (ICD-10-PCS; 2019-12-24)
PROC: 06HY33Z Insertion of Infusion Device into Lower Vein, Percutaneous Approach (ICD-10-PCS; 2019-12-24)
PROC: B54CZZA Ultrasonography of Left Lower Extremity Veins, Guidance (ICD-10-PCS; 2019-12-24)
PROC: 0DB78ZX Excision of Stomach, Pylorus, Via Natural or Artificial Opening Endoscopic, Diagnostic (ICD-10-PCS; 2019-12-28)
PROC: 4A00X4Z Measurement of Central Nervous Electrical Activity, External Approach (ICD-10-PCS; 2019-12-29)
PROC: 05HY33Z Insertion of Infusion Device into Upper Vein, Percutaneous Approach (ICD-10-PCS; 2019-12-29)
PROC: B54MZZA Ultrasonography of Right Upper Extremity Veins, Guidance (ICD-10-PCS; 2019-12-29)
PROC: 0GTJ0ZZ Resection of Thyroid Gland Isthmus, Open Approach (ICD-10-PCS; 2020-01-02)
PROC: 0B110F4 Bypass Trachea to Cutaneous with Tracheostomy Device, Open Approach (ICD-10-PCS; 2020-01-02)
PROC: 0DH63UZ Insertion of Feeding Device into Stomach, Percutaneous Approach (ICD-10-PCS; 2020-01-05)
PROC: 30233R1 Transfusion of Nonautologous Platelets into Peripheral Vein, Percutaneous Approach (ICD-10-PCS; 2020-01-07)
PROC: 30233N1 Transfusion of Nonautologous Red Blood Cells into Peripheral Vein, Percutaneous Approach (ICD-10-PCS; 2020-01-08)
PROC: 0B21XFZ Change Tracheostomy Device in Trachea, External Approach (ICD-10-PCS; 2020-01-08)
DX: A41.9 Sepsis, unspecified organism (principal); G92 Toxic encephalopathy; J96.00 Acute respiratory failure, unspecified whether with hypoxia or hypercapnia; J69.0 Pneumonitis due to inhalation of food and vomit; K25.4 Chronic or unspecified gastric ulcer with hemorrhage; K29.71 Gastritis, unspecified, with bleeding; E44.0 Moderate protein-calorie malnutrition; E87.1 Hypo-osmolality and hyponatremia; E72.20 Disorder of urea cycle metabolism, unspecified; I13.0 Hypertensive heart and chronic kidney disease with heart failure and stage 1 through stage 4 chronic kidney disease, or unspecified chronic kidney disease; N39.0 Urinary tract infection, site not specified; D62 Acute posthemorrhagic anemia; I69.351 Hemiplegia and hemiparesis following cerebral infarction affecting right dominant side; Z99.11 Dependence on respirator [ventilator] status; E11.22 Type 2 diabetes mellitus with diabetic chronic kidney disease; E11.65 Type 2 diabetes mellitus with hyperglycemia; R65.20 Severe sepsis without septic shock; J44.9 Chronic obstructive pulmonary disease, unspecified; I50.9 Heart failure, unspecified; Z20.828 Contact with and (suspected) exposure to other viral communicable diseases; G40.909 Epilepsy, unspecified, not intractable, without status epilepticus; E78.00 Pure hypercholesterolemia, unspecified; E78.5 Hyperlipidemia, unspecified; R13.10 Dysphagia, unspecified; E87.6 Hypokalemia; Z68.20 Body mass index [BMI] 20.0-20.9, adult; Z79.899 Other long term (current) drug therapy; Z79.84 Long term (current) use of oral hypoglycemic drugs; Y92.89 Other specified places as the place of occurrence of the external cause; Z79.82 Long term (current) use of aspirin; Z78.1 Physical restraint status
CPT/HCPCS: 36415; 36600; 70551; 71045; 74018; 76700; 76937; 80048; 80053; 80076; 80202; 80305; 80320; 81003; 82010; 82040; 82140; 82270; 82375; 82550; 82607; 82728; 82746; 82805; 82962; 83036; 83540; 83550; 83605; 83735; 83880; 84100; 84132; 84145; 84439; 84443; 84478; 84481; 84484; 85014; 85018; 85025; 85027; 85384; 86850; 86900; 86920; 86945; 87015; 87045; 87070; 87426; 87427; 87449; 87635; 88305; 88313; 89055; 93005; 94003; 94640; 97110; 97162; 97164; 97165; 97530; 97760; 99291; C1725; C1893; C9113; J0330; J0456; J1120; J1815; J1953; J2060; J2250; J2270; J2405; J2543; J2704; J2765; J3010; J3370; J3480; J3490; J7030; J7040; J7050; J7060; P9016; P9021; P9034; A4315; G0480

== ENCOUNTER 2020-06-13 18:39 | Inpatient (IN) | payer MEDICARE, MEDICAID ==
[~2020-06-13] VITALS: Ht 175.3 cm; Wt 63.2 kg
[~2020-06-13 18:39] MED LIST changes: +CLOP-31 PO; -CLOP75TA4 PO; +PANT20TA17 PO; -PANT20TA3 PO
[2020-06-13] MEDS ORDERED: ACETAMINOPHEN 650MG SUPP PR STA (19:14)
[2020-06-13] MEDS ORDERED: VANCOMYCIN 1 G PREMIX 200 ML IV ONE (19:15)
[2020-06-13] MEDS ORDERED: PIPERACILLIN/TAZ 3.375G PREMIX 50 ML IV ONE (19:15)
[2020-06-13 20:03] LABS: HEMATOCRIT. 30.9 % (42.0-52.0); HEMOGLOBIN. 10.3 g/dL (14.0-18.0); MEAN CORPUSCULAR HEMOGLOBIN 29.6 pg (28.0-32.0); MEAN CORPUSCULAR VOLUME 88.5 fL (80.0-94.0); MEAN PLATELET VOLUME 9.6 fl (7.4-10.4); PLATELET 229 x1000/uL (130-400); RED BLOOD CELL COUNT 3.49 mill/uL (4.7-6.1); RED CELL DISTRIBUTION WIDTH 14.9 % (11.6-14.6)
[2020-06-13 20:16] LABS: CHLORIDE 91 mEq/L (98-107)
[2020-06-13 20:22] LABS: BG CARBOXYHEMOGLOBIN 0.2 % (0.5-1.5); BG DEOXYHEMOGLOBIN 1.4 % (0.0-5.0); BG FRACTION INSPIRED OXYGEN 28; BG METHEMOGLOBIN 0.3 % (0.0-1.5); BG OXYGEN SATURATION 98.6 % (92.0-98.5); BG OXYHEMOGLOBIN 98.1 % (94.0-97.0); BG PCO2 57.9 mmHg (35.0-45.0); BG PH 7.457 (7.350-7.450); BG PO2 110.8 mmHg (75.0-100.0); BG SAMPLE SITE RIGHT RADIAL; BG TOTAL HEMOGLOBIN 11.1 g/dL (12.0-18.0); BG VENT MODE NASAL CANNULA
[2020-06-13 20:27] LABS: PLATELET ESTIMATE NORMAL
[2020-06-13] MEDS ORDERED: IPRATROPIUM BROMIDE (0.02%) 0.5MG/2.5ML NEB HHN STA (20:35)
[2020-06-13] MEDS ORDERED: ALBUTEROL (0.083%) 2.5MG/3ML NEB HHN STA (20:35)
[2020-06-13] MEDS ORDERED: METHYLPREDNISOLONE SOD SUCC 125 MG/2 ML VIAL IV STA (20:35)
[2020-06-13 20:43] LABS: CLARITY URINE CLEAR (CLEAR); COLOR URINE DARK YELLOW (YELLOW); KETONES URINE TRACE (NEGATIVE); LEUKOCYTE ESTERASE URINE NEGATIVE (NEGATIVE); NITRITE URINE NEGATIVE (NEGATIVE); OCCULT BLOOD URINE NEGATIVE (NEGATIVE); PROTEIN URINE 2+ (NEGATIVE)
[2020-06-13] MEDS: INSULIN LISPRO 100 UNITS/ML SUBCUT SCH (21:00)
[2020-06-13] MEDS ORDERED: MAGNESIUM/ALUMINUM HYDROXIDE/SIMETHICONE 30ML UDC PO PRN (21:00)
[2020-06-13] MEDS ORDERED: DEXTROSE 50% WATER 50ML SYRINGE IV PRN ×2 (21:00)
[2020-06-13] MEDS ORDERED: CLONIDINE 0.1MG TABLET PO PRN (21:00)
[2020-06-13] MEDS ORDERED: ENOXAPARIN 40MG/0.4ML SYR SUBCUT SCH (21:00)
[2020-06-13] MEDS ORDERED: ONDANSETRON HCL 4MG/2ML INJ IV PRN (21:00)
[2020-06-13] MEDS ORDERED: DOCUSATE SODIUM 100MG CAPSULE PO PRN (21:00)
[2020-06-13] MEDS ORDERED: LACTATED RINGERS 2,000 ML IV SCH (21:30)
[2020-06-13] MEDS: BLOOD SUGAR DIAGNOSTIC STRIP TEST SCH (21:33)
[2020-06-13] MEDS ORDERED: PIPERACILLIN/TAZOBACTAM 3.375 G/VIAL IV SCH (22:00)
[2020-06-13 23:00] VITALS: BP_SYST 65; BP_SYST 84; BP_DIAS 45; BP_DIAS 52
[2020-06-13] MEDS ORDERED: VANCOMYCIN 1 G PREMIX 200 ML IV SCH (23:00)
[2020-06-13 23:08] VITALS: BP 96/55
[2020-06-13] MEDS: ACETAMINOPHEN 325MG TABLET PO PRN (23:23)
[2020-06-13 23:30] VITALS: BP 78/56
[2020-06-13 23:33] VITALS: BP 74/63
[2020-06-13 23:43] VITALS: BP 84/50
[2020-06-14] VITALS (79 sets, daily range): BP systolic 78–143; BP diastolic 54–96
[2020-06-14] MEDS ORDERED: PIPERACILLIN/TAZOBACTAM 3.375 G in DEXT 5% WATER 100 ML IV SCH
[2020-06-14] MEDS ORDERED: PIPERACILLIN/TAZ 3.375G PREMIX 50 ML IV SCH (01:00)
[2020-06-14] MEDS: PIPERACILLIN/TAZOBACTAM 3.375 G in DEXT 5% WATER 100 ML IV SCH ×4 (01:13→17:26)
[2020-06-14] MEDS ORDERED: PHENYLEPHRINE 50 MG in DEXT 5% WATER 245 ML IV PRN (01:30)
[2020-06-14] MEDS: IPRATROPIUM BROMIDE (0.02%) 0.5MG/2.5ML NEB HHN SCH ×2 (04:05→08:17)
[2020-06-14] MEDS: VANCOMYCIN 1 G PREMIX 200 ML IV SCH ×3 (04:37→20:46)
[2020-06-14] MEDS ORDERED: VANCOMYCIN 1 G PREMIX 200 ML IV SCH (05:00)
[2020-06-14 05:12] LABS: HEMATOCRIT. 28.3 % (42.0-52.0); HEMOGLOBIN. 9.1 g/dL (14.0-18.0); MEAN CORPUSCULAR VOLUME 89.9 fL (80.0-94.0); MEAN PLATELET VOLUME 8.6 fl (7.4-10.4); PLATELET 209 x1000/uL (130-400); RED BLOOD CELL COUNT 3.15 mill/uL (4.7-6.1); RED CELL DISTRIBUTION WIDTH 15.3 % (11.6-14.6)
[2020-06-14 05:14] LABS: CHLORIDE 91 mEq/L (98-107)
[2020-06-14 05:21] LABS: PHOSPHORUS 1.8 mg/dL (2.5-4.9)
[2020-06-14] MEDS: BLOOD SUGAR DIAGNOSTIC STRIP TEST SCH ×5 (06:23→20:45)
[2020-06-14] MEDS: INSULIN LISPRO 100 UNITS/ML SUBCUT SCH ×4 (06:24→20:45)
[2020-06-14 07:46] LABS: BG BASE EXCESS 10.6 mmol/L (-2.0-2.0); BG CARBOXYHEMOGLOBIN 0.3 % (0.5-1.5); BG DEOXYHEMOGLOBIN 1.5 % (0.0-5.0); BG FRACTION INSPIRED OXYGEN 40; BG HCO3 ACT 33.7 mmol/L (22.0-26.0); BG OXYGEN SATURATION 98.5 % (92.0-98.5); BG OXYHEMOGLOBIN 98.2 % (94.0-97.0); BG PCO2 38.9 mmHg (35.0-45.0); BG PH 7.556 (7.350-7.450); BG SAMPLE SITE RIGHT RADIAL; BG TOTAL HEMOGLOBIN 9.9 g/dL (12.0-18.0); BG TOTAL RESPIRATORY RATE 14 b/min; BG VENT MODE VENT - AC
[2020-06-14 08:05] LABS: PLATELET ESTIMATE NORMAL
[2020-06-14] MEDS: PANTOPRAZOLE SODIUM 40 MG/VIAL IV SCH (08:42)
[2020-06-14] MEDS: MORPHINE SULFATE 2 MG/ML CPJ (NOT FOR IM USE) IV PRN ×2 (08:44→13:17)
[2020-06-14] MEDS ORDERED: LIDOCAINE HCL 1% 20ML VIAL (Pyxis) INJ ONE (08:50)
[2020-06-14] MEDS ORDERED: IPRATROPIUM/ALBUTEROL 0.5-3(2.5)MG/3ML NEB HHN PRN (11:00)
[2020-06-14] MEDS ORDERED: POTASSIUM CHLORIDE 20MEQ/PACKET PO NR (12:00)
[2020-06-14] MEDS: IPRATROPIUM/ALBUTEROL 0.5-3(2.5)MG/3ML NEB HHN SCH ×3 (12:13→21:27)
[2020-06-14] MEDS: ENOXAPARIN 60MG/0.6ML SYR SUBCUT SCH (12:54)
[2020-06-14] MEDS ORDERED: POTASSIUM PHOS,M-BASIC-D-BASIC 20 MMOL in DEXT 5% WATER 243.3333 ML IV NR (14:00)
[2020-06-14] MEDS ORDERED: IOHEXOL-350 100 ML BOTTLE ONE (15:27)
[2020-06-14] MEDS: ACETYLCYSTEINE 100MG/ML 10% VIAL 4ML INH SCH (17:06)
[2020-06-15] VITALS (11 sets, daily range): BP systolic 108–146; BP diastolic 58–93
[2020-06-15] MEDS: ACETYLCYSTEINE 100MG/ML 10% VIAL 4ML INH SCH ×3 (00:34→16:47)
[2020-06-15] MEDS: IPRATROPIUM/ALBUTEROL 0.5-3(2.5)MG/3ML NEB HHN SCH ×6 (00:34→20:18)
[2020-06-15] MEDS: ENOXAPARIN 60MG/0.6ML SYR SUBCUT SCH ×2 (00:38→12:00)
[2020-06-15] MEDS: BLOOD SUGAR DIAGNOSTIC STRIP TEST SCH ×5 (00:39→23:28)
[2020-06-15] MEDS: PIPERACILLIN/TAZOBACTAM 3.375 G in DEXT 5% WATER 100 ML IV SCH ×5 (00:39→23:28)
[2020-06-15] MEDS: INSULIN LISPRO 100 UNITS/ML SUBCUT SCH ×5 (06:02→23:32)
[2020-06-15] MEDS: VANCOMYCIN 1 G PREMIX 200 ML IV SCH ×2 (06:48→21:40)
[2020-06-15 07:24] LABS: PROTHROMBIN TIME 10.8 sec (9.6-11.0)
[2020-06-15 07:41] LABS: HEMATOCRIT. 22.8 % (42.0-52.0); HEMOGLOBIN. 7.5 g/dL (14.0-18.0); MEAN CORPUSCULAR HEMOGLOBIN 29.1 pg (28.0-32.0); MEAN CORPUSCULAR VOLUME 88.9 fL (80.0-94.0); MEAN PLATELET VOLUME 9.3 fl (7.4-10.4); PLATELET 191 x1000/uL (130-400); RED BLOOD CELL COUNT 2.57 mill/uL (4.7-6.1); RED CELL DISTRIBUTION WIDTH 14.8 % (11.6-14.6)
[2020-06-15 08:06] LABS: CHLORIDE 98 mEq/L (98-107)
[2020-06-15 09:26] LABS: BG BASE EXCESS 10.6 mmol/L (-2.0-2.0); BG CARBOXYHEMOGLOBIN 0.1 % (0.5-1.5); BG DEOXYHEMOGLOBIN 0.7 % (0.0-5.0); BG FRACTION INSPIRED OXYGEN 40; BG HCO3 ACT 34.5 mmol/L (22.0-26.0); BG METHEMOGLOBIN 0.3 % (0.0-1.5); BG OXYGEN SATURATION 99.3 % (92.0-98.5); BG OXYHEMOGLOBIN 98.9 % (94.0-97.0); BG PCO2 43.5 mmHg (35.0-45.0); BG PH 7.517 (7.350-7.450); BG PO2 156.7 mmHg (75.0-100.0); BG SAMPLE SITE RIGHT RADIAL; BG TOTAL HEMOGLOBIN 8.7 g/dL (12.0-18.0); BG TOTAL RESPIRATORY RATE 13 b/min; BG VENT MODE VENT - SIMV
[2020-06-15] MEDS ORDERED: POTASSIUM CHLORIDE INJ 40 MEQ in DEXT 5% WATER 250 ML IV ONE (09:45)
[2020-06-15] MEDS: PANTOPRAZOLE SODIUM 40 MG/VIAL IV SCH (10:26)
[2020-06-15 11:54] LABS: VITAMIN B12 SERUM 1636 pg/mL (211-911)
[2020-06-15 15:20] LABS: T4 FREE 1.16 ng/dL (0.76-1.46)
[2020-06-15 19:18] LABS: PLATELET ESTIMATE NORMAL
[2020-06-15] MEDS: COLISTIMETHATE SODIUM 150MG/VIAL INH SCH (20:47)
[2020-06-16] VITALS (14 sets, daily range): BP systolic 109–154; BP diastolic 63–100
[2020-06-16] MEDS: IPRATROPIUM/ALBUTEROL 0.5-3(2.5)MG/3ML NEB HHN SCH ×4 (00:33→11:40)
[2020-06-16] MEDS: ACETYLCYSTEINE 100MG/ML 10% VIAL 4ML INH SCH ×3 (00:33→21:17)
[2020-06-16 05:48] LABS: CHLORIDE 97 mEq/L (98-107)
[2020-06-16] MEDS: PIPERACILLIN/TAZOBACTAM 3.375 G in DEXT 5% WATER 100 ML IV SCH ×2 (05:57→12:56)
[2020-06-16 05:59] LABS: BASOPHILS % 0.2 % (0.0-2.0); HEMATOCRIT. 26.7 % (42.0-52.0); HEMOGLOBIN. 8.7 g/dL (14.0-18.0); LYMPHOCYTES % 13.1 % (20.0-50.0); MEAN CORPUSCULAR VOLUME 88.8 fL (80.0-94.0); MEAN PLATELET VOLUME 8.8 fl (7.4-10.4); MONOCYTES % 6.8 % (2.0-8.0); NEUTROPHILS % 77.9 % (40.0-76.0); PLATELET 219 x1000/uL (130-400); RED BLOOD CELL COUNT 3.01 mill/uL (4.7-6.1); RED CELL DISTRIBUTION WIDTH 15.3 % (11.6-14.6)
[2020-06-16] MEDS: INSULIN LISPRO 100 UNITS/ML SUBCUT SCH ×3 (06:11→18:00)
[2020-06-16] MEDS: BLOOD SUGAR DIAGNOSTIC STRIP TEST SCH ×4 (06:12→23:53)
[2020-06-16] MEDS: PANTOPRAZOLE SODIUM 40 MG/VIAL IV SCH (08:01)
[2020-06-16] MEDS: ACETAMINOPHEN 325MG TABLET PO PRN ×2 (08:02→16:13)
[2020-06-16] MEDS: VANCOMYCIN 1 G PREMIX 200 ML IV SCH (08:02)
[2020-06-16] MEDS: COLISTIMETHATE SODIUM 150MG/VIAL INH SCH ×2 (09:02→21:17)
[2020-06-16] MEDS ORDERED: KCL 20MEQ/100ML PREMIX 100 ML IV NR (12:00)
[2020-06-16] MEDS ORDERED: POTASSIUM CHLORIDE 20MEQ/PACKET PO NR ×2 (12:15→20:00)
[2020-06-16] MEDS: LEVOFLOXACIN 500MG TABLET PO SCH (15:24)
[2020-06-16] MEDS: CEFTAZIDIME PENTAHYDRATE 2 G in DEXT 5% WATER 100 ML IV SCH ×2 (16:29→23:53)
[2020-06-16] MEDS: IPRATROPIUM BROMIDE (0.02%) 0.5MG/2.5ML NEB HHN SCH (21:17)
[2020-06-17] VITALS (11 sets, daily range): BP systolic 126–162; BP diastolic 81–101
[2020-06-17] MEDS: IPRATROPIUM BROMIDE (0.02%) 0.5MG/2.5ML NEB HHN SCH ×3 (01:33→14:01)
[2020-06-17] MEDS: MORPHINE SULFATE 2 MG/ML CPJ (NOT FOR IM USE) IV PRN ×2 (02:01→12:39)
[2020-06-17] MEDS: BLOOD SUGAR DIAGNOSTIC STRIP TEST SCH ×3 (05:04→18:09)
[2020-06-17] MEDS: INSULIN LISPRO 100 UNITS/ML SUBCUT SCH ×4 (05:09→18:00)
[2020-06-17 05:32] LABS: CHLORIDE 97 mEq/L (98-107)
[2020-06-17 06:18] LABS: BASOPHILS % 0.1 % (0.0-2.0); EOSINOPHILS % 2.8 % (0.0-5.0); HEMATOCRIT. 29.4 % (42.0-52.0); HEMOGLOBIN. 9.6 g/dL (14.0-18.0); LYMPHOCYTES % 14.1 % (20.0-50.0); MEAN CORPUSCULAR HEMOGLOBIN 28.9 pg (28.0-32.0); MEAN CORPUSCULAR VOLUME 88.7 fL (80.0-94.0); MEAN PLATELET VOLUME 8.7 fl (7.4-10.4); PLATELET 242 x1000/uL (130-400); RED BLOOD CELL COUNT 3.32 mill/uL (4.7-6.1); RED CELL DISTRIBUTION WIDTH 15.5 % (11.6-14.6)
[2020-06-17] MEDS: COLISTIMETHATE SODIUM 150MG/VIAL INH SCH (08:22)
[2020-06-17] MEDS: ACETYLCYSTEINE 100MG/ML 10% VIAL 4ML INH SCH ×2 (08:50→14:01)
[2020-06-17] MEDS ORDERED: FAMOTIDINE 20MG/2ML VIAL IV SCH (09:00)
[2020-06-17] MEDS: LEVOFLOXACIN 500MG TABLET PO SCH (09:04)
[2020-06-17] MEDS: CEFTAZIDIME PENTAHYDRATE 2 G in DEXT 5% WATER 100 ML IV SCH ×2 (09:04→15:16)
[2020-06-17] MEDS ORDERED: ENOXAPARIN 60MG/0.6ML SYR SUBCUT SCH (13:00)
[2020-06-17 16:17] LABS: BG BASE EXCESS 8.6 mmol/L (-2.0-2.0); BG CARBOXYHEMOGLOBIN 0.3 % (0.5-1.5); BG DEOXYHEMOGLOBIN 1.2 % (0.0-5.0); BG FRACTION INSPIRED OXYGEN 40; BG HCO3 ACT 33.3 mmol/L (22.0-26.0); BG METHEMOGLOBIN 0.2 % (0.0-1.5); BG OXYGEN SATURATION 98.8 % (92.0-98.5); BG OXYHEMOGLOBIN 98.3 % (94.0-97.0); BG PCO2 47.3 mmHg (35.0-45.0); BG PH 7.466 (7.350-7.450); BG PO2 152.5 mmHg (75.0-100.0); BG SAMPLE SITE RIGHT RADIAL; BG TOTAL HEMOGLOBIN 10.3 g/dL (12.0-18.0); BG VENT MODE VENT - CPAP
== END 2020-06-17 20:35 | DRG 871 ==
LOC: ER 18:39 → MICUSO 20:30 → ENRESERV 21:31 → 5EST 06-14 22:31
PROVIDERS: ADMIT Family Medicine Adult Medicine; ATTEND Family Medicine Adult Medicine
PROC: 5A1945Z Respiratory Ventilation, 24-96 Consecutive Hours (ICD-10-PCS; principal; 2020-06-14)
PROC: 02HV33Z Insertion of Infusion Device into Superior Vena Cava, Percutaneous Approach (ICD-10-PCS; 2020-06-14)
PROC: B548ZZA Ultrasonography of Superior Vena Cava, Guidance (ICD-10-PCS; 2020-06-14)
DX: A41.52 Sepsis due to Pseudomonas (principal); J96.20 Acute and chronic respiratory failure, unspecified whether with hypoxia or hypercapnia; R65.21 Severe sepsis with septic shock; J15.1 Pneumonia due to Pseudomonas; I26.99 Other pulmonary embolism without acute cor pulmonale; I82.412 Acute embolism and thrombosis of left femoral vein; E44.1 Mild protein-calorie malnutrition; I69.351 Hemiplegia and hemiparesis following cerebral infarction affecting right dominant side; E87.1 Hypo-osmolality and hyponatremia; E87.6 Hypokalemia; E83.39 Other disorders of phosphorus metabolism; E11.9 Type 2 diabetes mellitus without complications; I10 Essential (primary) hypertension; D72.825 Bandemia; B95.8 Unspecified staphylococcus as the cause of diseases classified elsewhere; K21.9 Gastro-esophageal reflux disease without esophagitis; Z20.822 Contact with and (suspected) exposure to COVID-19; R13.10 Dysphagia, unspecified; D57.1 Sickle-cell disease without crisis; F17.210 Nicotine dependence, cigarettes, uncomplicated; G40.909 Epilepsy, unspecified, not intractable, without status epilepticus; E78.5 Hyperlipidemia, unspecified; E04.1 Nontoxic single thyroid nodule; Z93.0 Tracheostomy status; Z93.1 Gastrostomy status; Z68.20 Body mass index [BMI] 20.0-20.9, adult; Z87.01 Personal history of pneumonia (recurrent); Z86.718 Personal history of other venous thrombosis and embolism
CPT/HCPCS: 36415; 36600; 71045; 71275; 76937; 80048; 80076; 80202; 81003; 82375; 82607; 82805; 82962; 83036; 83540; 83550; 83605; 83735; 83880; 84100; 84145; 84439; 84443; 84481; 84484; 85025; 85044; 87070; 87077; 87186; 93005; 93970; 94002; 94003; 94640; 97162; 99285; A6261; C1725; C9113; J0713; J0770; J1650; J1815; J2270; J2543; J2930; J3370; J3480; J3490; J7060; J7608; Q9967; U0003; A4315